=== PATIENT | female | born 1990 | race Caucasian/White ===

== ENCOUNTER → 2016-12-05 12:29 | Day surgery (SDC) | payer BC ==
[~2016-12-05 12:29] MED LIST: Buffered Lidocaine 1% SYRIN* 3 ML/SYR SYRINGE INTRADERM ONE; Lidocaine 1% INJ* 10 MG/ML 30 ML SDV ONE; Midazolam* 1 MG/ML 5 ML VIAL (5 MG) ONE; Ondansetron INJ* 2 MG/ML VIAL IV PRN; ceFAZolin 2 GM PREMIX(*) 0 GM/0 ML BAG IVPB ONE; ceFAZolin 2 GM PREMIX(*) 2 GM/50 ML BAG IVPB ONE; fentaNYL* 50 MCG/ML 2 ML VIAL (100 MCG VIAL) ONE; oxyCODONE/Acetamin 5/325 MG* TAB ONE; oxyCODONE/Acetamin 5/325 MG* TAB PO PRN
[2016-12-05 12:45] LABS: UR Preg Internal Control QC Line Present
--- NOTE | 2016-12-05 16:42 | SURGPN ---
Brief Operative Note - Surgery Procedures: PRE/POSTOP DX: CROHN'S DISEASE PROC: POWER PORT PLACEMENT, LEFT SUBCLAVIAN SURG: EDUARD ASST: NONE ANES: LOCAL/MAC; NICOLE EBL: MIN SPEC: NONE DRAIN: NONE COMPL: NONE COND: STABLE TO RR.
[2016-12-05 17:16] VITALS: BP 134/78
--- NOTE | 2016-12-05 17:24 | RAD ---
INDICATION: PowerPort placement COMPARISON: None FINDINGS: 8.1 seconds of fluoroscopy were provided for the surgical department. Fluoroscopic spot imaging of the chest were obtained for operative control and show placement of a PowerPort catheter from a left-sided approach. The catheter projects over the superior vena cava . CPT II Codes: 6045F (fluoro time doc)
--- NOTE | 2016-12-05 17:25 | RAD ---
INDICATION: Status post PowerPort placement COMPARISON: Preoperative chest x-ray dated July 04, 2016 TECHNIQUE: Single AP portable view of the chest was obtained. FINDINGS: Image quality is compromised due to the relative inferiority of a portable chest x-ray. There is been interval placement of a left subclavian vein Mediport with the tip terminating at the cavoatrial junction. There is no pneumothorax. IMPRESSION: Interval placement of a left-sided subclavian vein Mediport without pneumothorax.
--- NOTE | 2016-12-06 11:58 | OP ---
DATE OF OPERATION: 12/05/16 [facility] DATE OF : 89 SURGEON: Rafa Dominguez MD SOLE SCRAPER: None. ANESTHESIOLOGIST: Dr. Gandhi. ANESTHESIA: Local MAC. PRE-OP DIAGNOSIS: Crohn's disease. POST-OP DIAGNOSIS: Crohn's disease. OPERATIVE PROCEDURE: PowerPort placement, left subclavian. ESTIMATED BLOOD LOSS: Minimal. IV FLUIDS: Crystalloid. SPECIMEN: None. DRAINS: None. COMPLICATIONS: None. COUNTS: Instrument, needle, and sponge counts were correct. DESCRIPTION OF PROCEDURE: The patient was brought to the operating room and placed on the table supine. Sequential compression devices were placed on both lower extremities. She was positioned and padded appropriately. She received appropriate intravenous antibiotics. She was prepped and draped in the usual sterile fashion and administered intravenous sedation. After the time-out was performed, local anesthetic was infiltrated into the skin and soft tissue for a left-sided subclavian approach. The subclavian vein was cannulated on first pass and a guidewire was placed into the superior vena cava and its position confirmed under fluoroscopy. Additional anesthetic was then infiltrated into the skin and soft tissue in the area of the proposed subcutaneous pocket. Additional anesthetic was infiltrated along the line of the tunnel. The pocket was created in the upper chest using cautery to develop the subcutaneous space. A counterincision was then made at the guidewire insertion site. The 8- Cambodian PowerPort catheter was back tunneled into the pocket. The peel-away sheath and dilator were advanced over the guidewire under fluoroscopic guidance. The catheter was advanced into the superior vena cava and positioned with the tip at the cavoatrial junction. The catheter was cut to approximately 23 cm and connected to the PowerPort, which was placed into the pocket. It was drawn and flushed easily. It was secured with a single 2-0 Surgipro suture. The pocket was closed with 3-0 Polysorb in interrupted fashion for the subcutaneous tissues. Skin was closed with 4-0 Monocryl in subcuticular fashion. Steri-Strips were applied with Tegaderm dressing. The patient tolerated the procedure well and was transferred to Recovery stable. CC: Curtis James MD; Phong Monreal MD * [id number]/[facility] #: [id number] [facility]
== END | disposition home or self-care (01) ==
LOC: OR 12:29
PROVIDERS: ATTEND Surgery
DX: K50.00 Crohn's disease of small intestine without complications (principal); E66.9 Obesity, unspecified; Z87.891 Personal history of nicotine dependence; K21.9 Gastro-esophageal reflux disease without esophagitis; R10.31 Right lower quadrant pain
CPT/HCPCS: 71010; 81025; A9270-GY; C1788; J0690; J1642; J2001; J2250; J3010

== ENCOUNTER 2017-04-04 19:07 | Emergency (ER) | payer BC ==
[2017-04-04 21:18] LABS: Hematocrit 44 % (35-47); Hemoglobin 14.8 g/dl (12.0-16.0); Mean Corpuscular HGB Conc 33 g/dl (31-36); Mean Corpuscular Hemoglobin 28 pg (27-31); Mean Corpuscular Volume 83 fL (80-97); Mean Platelet Volume 8 um3 (7.4-10.4); Red Blood Count 5.33 10^6/ul (4.0-5.4); Red Cell Distribution Width 14 % (10.5-15); White Blood Count 8.3 10^3/ul (3.5-10.8)
[2017-04-04 21:28] LABS: Potassium 3.6 mmol/L (3.5-5.0)
[2017-04-04 21:56] LABS: Albumin 4.2 g/dL (3.2-5.2); BUN/Creatinine Ratio 14.3 (8-20); Calcium 9.2 mg/dL (8.6-10.3); EGFR African American 131.1 (>60); Globulin 3.2 g/dL (2-4); Magnesium 2.1 mg/dL (1.9-2.7); Total Protein 7.4 g/dL (6.4-8.9)
[2017-04-04 21:57] LABS: TSH (Thyroid Stimulating Horm) 1.98 mcIU/mL (0.34-5.60)
--- NOTE | 2017-04-04 22:01 | ED ---
Rasheed Laureano SooYoung, scribed for Augie Matthews MD on 04/04/17 at 1925 . Palpitations / Dysrhythmia - HPI Summary HPI Summary: A 26 y/o F presents to ED with c/o palpitations onset last night. She states she can feel her heart beating hard, denies CP, describes it as chest discomfort. Associated sx: fatigue, mild chest discomfort, jitteriness since resolved. She came in because her sx weren't improving. She states have prev episodes of palpitations but they resolved sooner before. She used her albuterol inhaler which did provide mild relief. Denies aggravating factors. - History of Current Complaint Chief Complaint: EDDysrhythmPalp Time Seen by Provider: 04/04/17 19:22 Hx Obtained From: Patient Onset/Duration: Gradual Onset, Lasting Hours, Still Present Timing: Constant Severity Initially: Moderate Severity Currently: Moderate Aggravating: Nothing Alleviating: Medication - inhaler use Associated Signs & Symptoms: Chest Pain - "discomfort" - Allergy/Home Medications Allergies/Adverse Reactions: Allergies Allergy/AdvReac Type Severity Reaction Status Date / Time Adhesive Tape Allergy skin Verified 03/19/17 11:29 irritation, RASH No Known Drug Allergy Allergy Unknown Verified 03/19/17 11:29 Reaction Details SEASONAL, CATS, DOGS, MOLD Allergy Mild Congestion Uncoded 03/19/17 11:29 PMH/Surg Hx/FS Hx/Imm Hx Previously Healthy: No Endocrine/Hematology History: Reports: Hx Anemia - RELATED TO B12 Denies: Hx Diabetes, Hx Thyroid Disease Cardiovascular History: Denies: Hx Congestive Heart Failure, Hx Hypertension Respiratory History: Reports: Hx Asthma - PRN INHALER Denies: Hx Chronic Obstructive Pulmonary Disease (COPD) GI History: Reports: Hx Crohn's Disease, Hx Gastroesophageal Reflux Disease - ON MEDICATION FOR, Other GI Disorders - CROHNS Denies: Hx Ulcer History: Denies: Hx Dialysis, Hx Renal Disease Musculoskeletal History: Reports: Hx Arthritis - BACK, Other Musculoskeletal History - SPINAL STENOSIS, 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 COLONOSCOPY. WISDOM TEETH WITH SEDATION Hx Anesthesia Reactions: No Infectious Disease History: No Infectious Disease History: Denies: Hx Hepatitis, Hx Human Immunodeficiency Virus (HIV), History Other Infectious Disease, Traveled Outside the [place] in Last 30 Days - Family History Known Family History: Positive: Other - Negative for blood clots - Social History Occupation: Employed Full-time Lives: With Family Alcohol Use: Occasionally Hx Substance Use: No Substance Use Type: Reports: None Hx Tobacco Use: Yes Smoking Status (MU): Former Smoker Type: Cigarettes Amount Used/How Often: 1 PPD X 4 YEARS Length of Time of Smoking/Using Tobacco: appx 5yrs Have You Smoked in the Last Year: No Review of Systems Positive: Fatigue, Other - pos: jitteriness, resolved. Negative: Fever Positive: Palpitations, Chest Pain - "discomfort" All Other Systems Reviewed And Are Negative: Yes Physical Exam Triage Information Reviewed: Yes Vital Signs On Initial Exam: Initial Vitals Temp Pulse Resp BP Pulse Ox 98.5 F 94 18 130/86 96 04/04/17 19:12 04/04/17 19:12 04/04/17 19:12 04/04/17 19:12 04/04/17 19:12 Vital Signs Reviewed: Yes Appearance: Positive: Well-Appearing, No Pain Distress Skin: Positive: Warm Head/Face: Positive: Normal Head/Face Inspection Eyes: Positive: JOZEF ENT: Positive: Hearing grossly normal Neck: Positive: Supple Respiratory/Lung Sounds: Positive: Clear to Auscultation, Breath Sounds Present Cardiovascular: Positive: RRR. Negative: Murmur Abdomen Description: Positive: Nontender, Soft Bowel Sounds: Positive: Present Musculoskeletal: Positive: Strength/ROM Intact Neurological: Positive: Alert, Oriented to Person Place, Time Psychiatric: Positive: Affect/Mood Appropriate Diagnostics - Vital Signs Vital Signs Temp Pulse Resp BP Pulse Ox 04/04/17 19:17 98.5 F 94 18 130/86 96 04/04/17 19:12 98.5 F 94 18 130/86 96 - Laboratory Lab Results: Lab Results 04/04/17 04/04/17 04/04/17 Range/Units 21:00 21:00 21:00 WBC 8.3 (3.5-10.8) 10^3/ul RBC 5.33 (4.0-5.4) 10^6/ul Hgb 14.8 (12.0-16.0) g/dl Hct 44 (35-47) % MCV 83 (80-97) fL MCH 28 (27-31) pg MCHC 33 (31-36) g/dl RDW 14 (10.5-15) % Plt Count 264 (150-450) 10^3/ul MPV 8 (7.4-10.4) um3 Neut % (Auto) 50.8 (38-83) % Lymph % (Auto) 37.8 (25-47) % Ness % (Auto) 7.1 (1-9) % Eos % (Auto) 2.6 (0-6) % Baso % (Auto) 1.7 (0-2) % Absolute Neuts (auto) 4.2 (1.5-7.7) 10^3/ul Absolute Lymphs (auto) 3.1 (1.0-4.8) 10^3/ul Absolute Monos (auto) 0.6 (0-0.8) 10^3/ul Absolute Eos (auto) 0.2 (0-0.6) 10^3/ul Absolute Basos (auto) 0.1 (0-0.2) 10^3/ul Absolute Nucleated RBC 0 10^3/ul Nucleated RBC % 0 Sodium 137 (133-145) mmol/L Potassium 3.6 (3.5-5.0) mmol/L Chloride 105 (101-111) mmol/L Carbon Dioxide 24 (22-32) mmol/L Anion Gap 8 (2-11) mmol/L BUN 10 (6-24) mg/dL Creatinine 0.70 (0.51-0.95) mg/dL Est GFR ( Amer) 131.1 (>60) Est GFR (Non-Af Amer) 102.0 (>60) BUN/Creatinine Ratio 14.3 (8-20) Glucose 83 (70-100) mg/dL Lactic Acid 0.7 (0.5-2.0) mmol/L Calcium 9.2 (8.6-10.3) mg/dL Magnesium 2.1 (1.9-2.7) mg/dL Total Bilirubin 1.00 (0.2-1.0) mg/dL AST 21 (13-39) U/L ALT 32 (7-52) U/L Alkaline Phosphatase 67 (34-104) U/L Troponin I 0.00 (<0.04) ng/mL Total Protein 7.4 (6.4-8.9) g/dL Albumin 4.2 (3.2-5.2) g/dL Globulin 3.2 (2-4) g/dL Albumin/Globulin Ratio 1.3 (1-3) TSH 1.98 (0.34-5.60) mcIU/mL Result Diagrams: 04/04/17 21:00 04/04/17 21:00 Lab Statement: Any lab studies that have been ordered have been reviewed, and results considered in the medical decision making process. - EKG 1923 Cardiac Rate: NL EKG Rhythm: Sinus Rhythm ST Segment: Normal Re-Evaluation - Re-Evaluation 1 Re-Evaluation Time: 22:02 Change: Improved Comment: Discussing results and dispo with pt. Pt voiced understanding. Course/Dx - Course Course Of Treatment: Pt is a 26 y/o F presenting with palpitations onset last night. She states she can feel her heart beating hard, denies CP, describes it as discomfort. Associated sx: fatigue, mild chest discomfort, jitteriness since resolved. She came in because her sx weren't improving. She states have prev episodes of palpitations but they resolved sooner before. She used her albuterol inhaler which did provide mild relief. Denies aggravating factors. Blood work results are without any significant abnormalities. EKG is NSR with no STEMI. Will dispo home to f/u with PCP. - Diagnoses Provider Diagnoses: Palpitations Discharge - Discharge Plan Condition: Stable Disposition: HOME Patient Education Materials: Chest Pain (ED) Referrals: Phong Moneral MD [Primary Care Provider] - 2 Days Additional Instructions: Follow up with your primary care provider within the next 2 days. Please return to the Emergency Room if you experience new or worsening symptoms. The documentation as recorded by the Rasheed jacome SooYoung accurately reflects the service I personally performed and the decisions made by me, Augie Matthews MD.
[2017-04-04 22:19] VITALS: BP 123/78
== END 2017-04-04 22:10 | disposition home or self-care (01) ==
LOC: ED 19:07
DX: R00.2 Palpitations (principal); R07.9 Chest pain, unspecified; Z87.891 Personal history of nicotine dependence; R53.83 Other fatigue
CPT/HCPCS: 36415; 80053; 83605; 83735; 84443; 84484; 85025; 93005; 99282

== ENCOUNTER 2017-05-12 21:58 | Emergency (ER) | payer BC ==
[2017-05-12] MEDS ORDERED: Ondansetron INJ* 2 MG/ML VIAL IV ONE (22:21)
[2017-05-12] MEDS ORDERED: Morphine INJ* 4 MG/ML 1 ML CARPUJECT IV ONE ×2 (22:21→23:49)
[2017-05-12] MEDS ORDERED: predniSONE TAB* 20 MG PO ONE (23:49)
[2017-05-12] MEDS ORDERED: oxyCODONE/Acetamin 5/325 MG* TAB PO ONE (23:50)
--- NOTE | 2017-05-12 23:58 | ED ---
Sarai Laureano Emily, scribed for Scott Rouse MD on 05/12/17 at 2216 . Back Pain - HPI Summary HPI Summary: This patient is a 26 year old F presenting to [facility] accompanied by with a chief complaint of left, lower back pain radiating to left lower buttocks and bilateral lower extremities that began yesterday morning. The CC is described as shooting pain. The patient rates the pain 7/10 in severity. Symptoms aggravated by movement. Symptoms alleviated by nothing. Patient reports numb and tingly legs. Patient denies urinary incontinence and bowel symptoms. PMHx of back pain with stenosis and degenerative disc disease. - History of Current Complaint Chief Complaint: EDBackInjuryPain Stated Complaint: LOWER BACK PAIN Time Seen by Provider: 05/12/17 22:07 Hx Obtained From: Patient Hx Last Menstrual Period: ON DEPOPROVERA Onset/Duration: Sudden Onset, Lasting Days, Still Present Onset/Duration: Started Days Ago Timing: Constant, Lasting Days Back Pain Location: Radiates To - Left lower buttocks and bilateral lower extremities Severity Initially: Moderate Severity Currently: Moderate Pain Intensity: 7 Pain Scale Used: 0-10 Numeric Aggravating Symptom(s): Movement Alleviating Symptom(s): Nothing Associated Signs And Symptoms: Positive: Other - Patient reports numb and tingly legs. Patient denies urinary incontinence and bowel symptoms - Allergies/Home Medications Allergies/Adverse Reactions: Allergies Allergy/AdvReac Type Severity Reaction Status Date / Time Adhesive Tape Allergy skin Verified 05/12/17 22:03 irritation, RASH No Known Drug Allergy Allergy Unknown Verified 05/12/17 22:03 Reaction Details SEASONAL, CATS, DOGS, MOLD Allergy Mild Congestion Uncoded 05/12/17 22:03 PMH/Surg Hx/FS Hx/Imm Hx Previously Healthy: No Endocrine/Hematology History: Reports: Hx Anemia - RELATED TO B12 Denies: Hx Diabetes, Hx Thyroid Disease Cardiovascular History: Denies: Hx Congestive Heart Failure, Hx Hypertension Respiratory History: Reports: Hx Asthma - PRN INHALER Denies: Hx Chronic Obstructive Pulmonary Disease (COPD) GI History: Reports: Hx Crohn's Disease, Hx Gastroesophageal Reflux Disease - ON MEDICATION FOR, Other GI Disorders - CROHNS Denies: Hx Ulcer History: Denies: Hx Dialysis, Hx Renal Disease Musculoskeletal History: Reports: Hx Arthritis - BACK, Other Musculoskeletal History - SPINAL STENOSIS, 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 COLONOSCOPY. WISDOM TEETH WITH SEDATION Hx Anesthesia Reactions: No Infectious Disease History: Denies: Hx Hepatitis, Hx Human Immunodeficiency Virus (HIV), History Other Infectious Disease, Traveled Outside the [place] in Last 30 Days - Family History Known Family History: Positive: Other - Negative for blood clots - Social History Occupation: Employed Full-time Lives: With Family Alcohol Use: Occasionally Hx Substance Use: No Substance Use Type: Reports: None Hx Tobacco Use: Yes Smoking Status (MU): Former Smoker Type: Cigarettes Amount Used/How Often: 1 PPD X 4 YEARS Length of Time of Smoking/Using Tobacco: appx 5yrs Have You Smoked in the Last Year: No Review of Systems Genitourinary: Other - Negative bowel symptoms Negative: incontinence Positive: Other - Back pain. Numb and "tingly" legs All Other Systems Reviewed And Are Negative: Yes Physical Exam Triage Information Reviewed: Yes Vital Signs On Initial Exam: Initial Vitals Temp Pulse Resp BP Pulse Ox 97.5 F 90 16 131/84 98 05/12/17 22:00 05/12/17 22:00 05/12/17 22:00 05/12/17 22:00 05/12/17 22:00 Vital Signs Reviewed: Yes Appearance: Positive: Well-Appearing, Pain Distress - Mild Skin: Positive: Warm, Skin Color Reflects Adequate Perfusion, Dry Head/Face: Positive: Normal Head/Face Inspection Eyes: Positive: EOMI, JOZEF ENT: Positive: Normal ENT inspection Neck: Positive: Supple, Nontender Respiratory/Lung Sounds: Positive: Clear to Auscultation, Breath Sounds Present Cardiovascular: Positive: RRR Abdomen Description: Positive: Nontender, Soft Bowel Sounds: Positive: Present Musculoskeletal: Positive: Strength/ROM Intact, Other - Tender lower lumbar and through both buttocks on sciatic nerve distributions. Full range of motion and good strength in both legs. Good plantar flexion. Good dorsal flexion including greater toe. Good hip flexion. Good knee flexion. Hesitance secondary to pain. Neurological: Positive: Normal, Sensory/Motor Intact, Alert, Oriented to Person Place, Time Psychiatric: Positive: Affect/Mood Appropriate Diagnostics - Vital Signs Vital Signs Temp Pulse Resp BP Pulse Ox 05/12/17 22:00 97.5 F 90 16 131/84 98 - Laboratory Lab Statement: Any lab studies that have been ordered have been reviewed, and results considered in the medical decision making process. - CT Lumbar Spine CT Interpretation Completed By: Radiologist - Reveals bulging of the L3-4 and L4 -5 discs without significant mass effect. Moderate size L5/S1 disc herniation which mildly narrow the central canal and mildly abus the descending right and left S1 nerve roots. ED physician has reviewed this radiology report and agrees. Back Pain Course/Dx - Course Course Of Treatment: PATIENT HAS INTERMITTENT NUMBNESS AND TINGLING IN THE LEFT LEG THAT CHANGES WITH POSITION. NO MOTOR DEFICIT FOUND ON EXAM. DISCUSSED WITH PATIENT THE NEED FOR CLOSE FOLLOW UP WITH PROBABLE LS SPINE MRI AND THE NEED TO GET SEEN RIGHT AWAY FOR ANY NEUROLOGIC DEFICIT. DISCUSSED CT RESULTS WITH PATIENT/. NO CRITICAL CARE TIME. - Diagnoses Provider Diagnoses: Low back pain, Left lumbar radiculopathy Discharge - Discharge Plan Condition: Stable Disposition: HOME Prescriptions: oxyCODONE/Acetamin 5/325 MG* [Percocet 5/325 TAB*] 1 tab PO Q4H PRN #20 tab MDD 6 PRN Reason: Pain predniSONE TAB* [Deltasone TAB*] 40 mg PO DAILY #8 tab Patient Education Materials: Acute Low Back Pain (ED), Lumbar Radiculopathy (ED ) Forms: *Work Release Referrals: Phong Monreal MD [Primary Care Provider] - Additional Instructions: FOLLOW UP WITH YOUR DOCTOR. CALL 05/14/17, FOR FOLLOW UP. RETURN TO THE EMERGENCY DEPARTMENT FOR ANY WORSENING OF YOUR CONDITION; WEAKNESS , NUMBNESS, DIFFICULTY CONTROLLING BOWEL OR BLADDER OR QUESTIONS OR CONCERNS. The documentation as recorded by the Sarai jacome Emily accurately reflects the service I personally performed and the decisions made by me, Scott Rouse MD.
[2017-05-13 00:04] VITALS: BP 123/67
--- NOTE | 2017-05-13 14:35 | RAD ---
Indication: Low back pain extending to the bilateral legs. Comparison: July 04, 2016 CT. Technique: Noncontrast CT lumbar sacral spine. Multiplanar reformation. Report: Negative for paravertebral hematoma or mass. Negative for fracture or spondylolysis at any level. Normal vertebral alignment without spondylolisthesis at any level. T12-L1: Unremarkable disc level for age without acquired spinal stenosis. L1-L2: Unremarkable disc level for age without acquired spinal stenosis. L2-L3: Unremarkable disc level for age without acquired spinal stenosis. L3-L4: Unremarkable disc level for age without acquired spinal stenosis. L4-L5: Suggestion of mild annular disc bulge. Negative for spinal stenosis. L5-S1: Posterior central small disc extrusion with mild caudal extension and resulting impression on the central anterior aspect of the thecal sac. No significant resulting central canal or foraminal stenosis. IMPRESSION: At L5-S1 there is a small central disc extrusion with only mild resulting impression on the anterior aspect of the thecal sac. Negative for significant interval change compared with the July 04, 2016 exam.
== END 2017-05-13 00:42 | disposition home or self-care (01) ==
LOC: ED 21:58
DX: M54.5 Low back pain (principal); M54.16 Radiculopathy, lumbar region
CPT/HCPCS: 72131; 96374; 96375; 99283; A9270-GY; J2270; J2405; J7512

== ENCOUNTER 2018-03-30 14:59 | Emergency (ER) | payer BC ==
--- NOTE | 2018-03-30 16:10 | ED ---
Back Pain - HPI Summary HPI Summary: This is ayaz Braden documenting for attending Carl Mart MD. Patient is a 27 y/o F w/ c/o acute back pain. Patient notes back pain onset yesterday evening. Today in the morning, it had temporarily resolved but suddenly onset again at around 1000. Pain is rated 8/10 in the room and it is noted to be located at the center of back. Pain radiates outward to sides. Patient has Hx of chronic back pain but notes present pain is different from the typical pain she experiences. She states she takes epidural shots every two months for back pain. It has been about a month since her last shot. Pain is characterized as tightness. No recent trauma is noted. She denies weakness and claims FROM. On triage, nothing is noted to aggravate or alleviate Sx. Home medications and allergies reviewed. - History of Current Complaint Chief Complaint: EDBackInjuryPain Stated Complaint: BACK PAIN Time Seen by Provider: 03/30/18 15:47 Hx Obtained From: Patient Hx Last Menstrual Period: ON DEPOPROVERA Onset/Duration: Sudden Onset, Lasting Days - pain onset was yesterday, resolved temporarily and returned this morning Onset/Duration: Started Days Ago - pain onset was yesterday, resolved temporarily and returned this morning Timing: Intermittent - pain onset was yesterday, resolved temporarily and returned this morning Back Pain Location: Is Discrete @ - center of back, Radiates To - outwards to sides Severity Currently: Severe Pain Intensity: 8 Pain Scale Used: 0-10 Numeric - 8/10 Aggravating Symptom(s): Nothing Alleviating Symptom(s): Nothing - Allergies/Home Medications Allergies/Adverse Reactions: Allergies Allergy/AdvReac Type Severity Reaction Status Date / Time Adhesive Tape Allergy skin Verified 03/30/18 15:05 irritation, RASH SEASONAL, CATS, DOGS, MOLD Allergy Mild Congestion Uncoded 03/30/18 15:05 PMH/Surg Hx/FS Hx/Imm Hx Endocrine/Hematology History: Reports: Hx Anemia - RELATED TO B12 Denies: Hx Diabetes, Hx Thyroid Disease Cardiovascular History: Denies: Hx Congestive Heart Failure, Hx Hypertension Respiratory History: Reports: Hx Asthma - PRN INHALER Denies: Hx Chronic Obstructive Pulmonary Disease (COPD) GI History: Reports: Hx Crohn's Disease, Hx Gastroesophageal Reflux Disease - ON MEDICATION FOR, Other GI Disorders - CROHNS Denies: Hx Ulcer History: Denies: Hx Dialysis, Hx Renal Disease Musculoskeletal History: Reports: Hx Arthritis - BACK, Other Musculoskeletal History - SPINAL STENOSIS, 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 COLONOSCOPY, POWERPORT INSERTION 12/11. WISDOM TEETH WITH SEDATION Hx Anesthesia Reactions: No Infectious Disease History: No Infectious Disease History: Denies: Hx Hepatitis, Hx Human Immunodeficiency Virus (HIV), History Other Infectious Disease, Traveled Outside the [place] in Last 30 Days - Family History Known Family History: Positive: Other - Negative for blood clots - Social History Alcohol Use: Occasionally Alcohol Amount: 1-2 DRINKS Hx Substance Use: No Substance Use Type: Reports: None Hx Tobacco Use: Yes Smoking Status (MU): Former Smoker Type: Cigarettes Amount Used/How Often: 1 PPD X 4 YEARS Length of Time of Smoking/Using Tobacco: appx 5yrs Have You Smoked in the Last Year: No Review of Systems Negative: Fever - on vitals, temperature is 97.9 F Positive: Other - back pain located at the center of the back; pain radiates outwards to sides All Other Systems Reviewed And Are Negative: Yes Physical Exam - Summary Physical Exam Summary: Appearance: The patient is well-nourished in no acute distress and in no acute pain. Skin: The skin is warm and dry and skin color reflects adequate perfusion. HEENT: The head is normocephalic and atraumatic. The pupils are equal and reactive. The conjunctivae are clear and without drainage. Nares are patent and without drainage. Mouth reveals moist mucous membranes and the throat is without erythema and exudate. The external ears are intact. The ear canals are patent and without drainage. The tympanic membranes are intact. Neck: The neck is supple with full range of motion and non-tender. There are no carotid bruits. There is no neck vein distension. Respiratory: Chest is non-tender. Lungs are clear to auscultation and breath sounds are symmetrical and equal. Cardiovascular: Heart is regular rate and rhythm. There is no murmur or rub auscultated. There is no peripheral edema and pulses are symmetrical and equal. Abdomen: The abdomen is soft and non-tender. There are normal bowel sounds heard in all four quadrants and there is no organomegaly palpated. Musculoskeletal: There is no back tenderness noted. Extremities are non-tender with full range of motion. There is good capillary refill. There is no peripheral edema or calf tenderness elicited. Neurological: Patient is alert and oriented to person, place and time. The patient has symmetrical motor strength in all four extremities. Cranial nerves are grossly intact. Deep tendon reflexes are symmetrical and equal in all four extremities. Psychiatric: The patient has an appropriate affect and does not exhibit any anxiety or depression. Triage Information Reviewed: Yes Vital Signs On Initial Exam: Initial Vitals Temp Pulse Resp BP Pulse Ox 97.9 F 80 16 109/76 97 03/30/18 15:02 03/30/18 15:02 03/30/18 15:02 03/30/18 15:02 03/30/18 15:02 Vital Signs Reviewed: Yes Diagnostics - Vital Signs Vital Signs Temp Pulse Resp BP Pulse Ox 03/30/18 15:02 97.9 F 80 16 109/76 97 - Laboratory Lab Statement: Any lab studies that have been ordered have been reviewed, and results considered in the medical decision making process. Re-Evaluation - Re-Evaluation First Eval Re-Evaluation Time: 17:05 Comment: Discussed patient's desires for treatment. Patient will be discharged to home and follow up with pain management doctor, Dr. Lozoya. Patient is agreeable with plan. Back Pain Course/Dx - Course Course Of Treatment: Ms. Klein has long history of low back pain. She is treated every 2 months with injections through the pain clinic. Her last injection was January 30. Normally her back pain begins to come back gradually after 2 months and she became concerned because it is not quite been 2 months and her pain returned quickly. She was neurologically intact. I don't have a lot to offer her except pain control as she does not qualify for MRI at this time. There is no trauma and CT has little to offer and his invasive for 27- year-old female. I gave her a short prescription for Langley and recommended follow-up at the pain clinic. - Diagnoses Provider Diagnoses: Low back strain Discharge - Sign-Out/Discharge Documenting (check all that apply): Patient Departure - discharge - Discharge Plan Condition: Stable Disposition: HOME Prescriptions: HYDROcodone/ACETAMIN 5-325 MG* [Langley 5-325 TAB*] 1 tab PO Q6H PRN #20 tab MDD 4 PRN Reason: Pain Patient Education Materials: Low Back Strain (ED) Forms: *Work Release Referrals: Felipe Lozoya MD [Medical Doctor] - 3 Days Additional Instructions: Follow up with Dr. Lozoya in 2-3 days. Return to ED for any new or worsening symptoms. - Billing Disposition and Condition Condition: STABLE Disposition: Home
[2018-03-30] MEDS ORDERED: oxyCODONE/Acetamin 5/325 MG* TAB PO ONE (16:23)
[2018-03-30 17:44] VITALS: BP 107/84
== END 2018-03-30 17:16 | disposition home or self-care (01) ==
LOC: ED 14:59
DX: S39.012A Strain of muscle, fascia and tendon of lower back, initial encounter (principal); X58.XXXA Exposure to other specified factors, initial encounter; Y93.9 Activity, unspecified; Y92.9 Unspecified place or not applicable; J45.909 Unspecified asthma, uncomplicated; K21.9 Gastro-esophageal reflux disease without esophagitis; Z87.891 Personal history of nicotine dependence
CPT/HCPCS: 99282

== ENCOUNTER 2018-06-17 19:54 | Emergency (ER) | payer BC ==
[2018-06-17 20:05] VITALS: BP 126/85
--- NOTE | 2018-06-17 20:17 | UC ---
Eye Complaint HPI - HPI Summary HPI Summary: 27 yo female presents with left eye redness and drainage for 1 week. She says that around this time she tends to get allergies, so she thought her eye was related to seasonal allergies. Has been using antihistamine eye drops with no relief. Denies eye injury or FB into eyes. She does not wear contacts or glasses. Denies fever or chills or recent illness. - History of Current Complaint Chief Complaint: UCEye Stated Complaint: EYE IRRITATION, AND SORE THROAT Time Seen by Provider: 06/17/18 20:01 Hx Obtained From: Patient Hx Last Menstrual Period: [id number] Onset/Duration: Sudden Onset Severity Initially: Mild Severity Currently: Mild Pain Intensity: 3 Pain Scale Used: 0-10 Numeric - Allergies/Home Medications Allergies/Adverse Reactions: Allergies Allergy/AdvReac Type Severity Reaction Status Date / Time Adhesive Tape Allergy skin Verified 06/17/18 20:05 irritation, RASH SEASONAL, CATS, DOGS, MOLD Allergy Mild Congestion Uncoded 06/17/18 20:05 PMH/Surg Hx/FS Hx/Imm Hx - Additional Past Medical History Additional PMH: RA Respiratory History: Asthma GI/ History: Gastroesophageal Reflux - Surgical History Surgical History: Yes Surgery Procedure, Year, and Place: ILIECTOMY, ILIEOSTOMY 2008,ILEOSTOMY REVERSAL 2009, HERNIA REPAIR 2009. COLONOSCOPY, POWERPORT INSERTION 12/11. WISDOM TEETH WITH SEDATION - Family History Known Family History: Positive: Other - Negative for blood clots - Social History Occupation: Employed Full-time Lives: With Family Alcohol Use: Occasionally Alcohol Amount: 1-2 drinks per week Substance Use Type: None Smoking Status (MU): Former Smoker Type: Cigarettes Amount Used/How Often: 1 PPD X 4 YEARS Length of Time of Smoking/Using Tobacco: appx 5yrs Have You Smoked in the Last Year: No When Did the Patient Quit Smoking/Using Tobacco: 2 YEARS AGO Household Exposure Type: Cigarettes - Immunization History Most Recent Tetanus Shot: fall 2011 Review of Systems Constitutional: Negative Skin: Negative Eyes: Drainage - left, Eye Redness - left ENT: Negative Respiratory: Negative Cardiovascular: Negative Neurovascular: Negative Neurological: Negative Psychological: Negative All Other Systems Reviewed And Are Negative: Yes Physical Exam - Summary Physical Exam Summary: GENERAL: WDWN. No pain distress. SKIN: No rashes, sores, lesions, or open wounds. HEENT: Head: AT/NC Eyes: EOM intact. PERRLA. LEFT EYE: Moderate scleral injection. Conjunctiva with Moderate erythema and inflammation. Mild clear/yellow discharge. RIGHT EYE: Conjunctiva clear without inflammation or discharge. No FBs appreciated Nose: NTTP maxillary and frontal sinus. NECK: Supple. Nontender. No lymphadenopathy. CHEST: No accessory muscle use. Breathing comfortably and in no distress. CV: Pulses intact. Cap refill <2seconds NEURO: Alert. PSYCH: Age appropriate behavior. Triage Information Reviewed: Yes Vital Signs: Initial Vital Signs Temp 98.7 F 06/17/18 19:59 Pulse 87 06/17/18 19:59 Resp 16 06/17/18 19:59 BP 126/85 06/17/18 19:59 Pulse Ox 97 06/17/18 19:59 Vital Signs Reviewed: Yes Eye Complaint Course/Dx - Course Course Of Treatment: Left eye conjunctivitis - Differential Dx/Diagnosis Provider Diagnoses: Left eye conjunctivitis Discharge - Sign-Out/Discharge Documenting (check all that apply): Patient Departure All imaging exams completed and their final reports reviewed: No Studies - Discharge Plan Condition: Stable Disposition: HOME Prescriptions: Ofloxacin 0.3% (Eye Drop) [Ocuflox OPTH 0.3% (Eye Drop)] 1 drop LEFT EYE Q4H #1 btl Patient Education Materials: Conjunctivitis (ED) Forms: *Work Release Referrals: Phong Monreal MD [Primary Care Provider] - Additional Instructions: If you develop a fever, shortness of breath, chest pain, new or worsening symptoms - please call your PCP or go to the ED. - Billing Disposition and Condition Condition: STABLE Disposition: Home
== END 2018-06-17 20:25 | disposition home or self-care (01) ==
LOC: UCEAST 19:54
DX: H10.9 Unspecified conjunctivitis (principal); J45.909 Unspecified asthma, uncomplicated; Z87.891 Personal history of nicotine dependence; Z91.048 Other nonmedicinal substance allergy status
CPT/HCPCS: 99212; G0463

== ENCOUNTER 2018-08-28 14:55 | Emergency (ER) | payer BC ==
--- OUTSIDE RECORDS SUMMARY | 2018-08-28 15:00 | XMS REPORT | Continuity of Care Document ---
:1990 External Reference #:[id number] Author Name Curtis James MD Address [facility] [place] [address] Care Team Providers Name Role Phone Phong Moneral MD Care Team Information Cook Night Unavailable Phong Monreal MD Primary Care Physician Unavailable Payers Type Date Identification Numbers Payment Provider Subscriber Policy Number: [id number] BS Of LIOR Ivis Corey PayID: [id number] [address] [address] [place] [address] Advance Directives Description No Information Available Problems Date Description Provider Status Onset: 01/25/2016 Gastroesophageal reflux disease Curtis James MD Active Onset: 01/25/2016 Epigastric pain Curtis James MD Active Onset: 07/14/2015 Crohn's disease of small AND large Curtis James MD Active intestines Onset: 07/14/2015 Eruption Curtis James MD Active Onset: 07/03/2014 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 Onset: 07/03/2014 Melena MATT Chin Active Onset: 08/14/2012 Crohn's disease Curtis James MD Active Family History Date Family Member(s) Problem(s) Comments Father No Current Problems Mother No Current Problems Social History Type Date Description Comments Sex Unknown Tobacco Use Start: Unknown End: Unknown Patient is a former smoker Smoking Status Reviewed: 07/24/18 Patient is a former smoker Allergies, Adverse Reactions, Alerts Description No Known Drug Allergies Medications Medication Date Status Form Strength Qnty SIG Indications Ordering Provider Hyoscyamine 06/27/ Active Tablets Sub 0.125mg 30tab take 1 to K50.818 Curtis Bear Sulfate SL 2018 s 3 tablets [place], by mouth daily as needed for diarrhea, pain Emla 02/06/ Active Cream 2.5-2.5% 50gm apply Curtsi Bear 2016 small dab Erika, to [facility] before infusion Protonix 01/24/ Active Tablets DR 40mg 120ta 1 by Curtis Bear 2015 bs mouth Erika, twice a MD day Remicade / Active Solution 100mg infusion Unknown 0000 Rec every 7 weeks Vitamin B12 / Active Liquid 1000mcg 1000 mcg Unknown 0000 Im Every Month Trazodone HCL / Active Tablets 50mg hs Unknown 0000 Flexeril / Active Tablets 10mg 1 by Unknown 0000 mouth at hs prn Montelukast / Active Tablets 10mg 1 by Unknown Sodium 0000 mouth every day Colyte With 06/27/ Hx Solution 240gm 4000m by mouth K50.818 Curtis Baer Flavor Packs 2016 - Rec l as Erika, 06/30/ directed 2016 Pantoprazole 02/03/ Hx Tablets DR 40mg 120ta Take One Curtis Bear Sodium 2016 - bs Tablet By Erika, 06/27/ Mouth 2016 Twice Daily Prednisone 06/23/ Hx Tablets 10mg QS 3 po q Curtis Bear 2015 - day x 5 Erika, 11/16/ days, 2016 then 2 po qday x 5 days, then 1 po q day x 5 days, then 1 po qother day x 6 days, then stop Carafate 01/24/ Hx Tablets 1gm 120ta 1 by Curtis Bear 2015 - bs mouth Erika, 11/16/ three 2016 times a day, and q hs Budesonide ER 09/02/ Hx Caps ER 3mg QS 3 by Curtis Bear 2015 - 24HR mouth Erika, 01/24/ everyday 2015 x 2wks, then 2 by mouth every day x 1weeks, then 1 by mouth every day x 1weeks, then stop Doxycycline 07/14/ Hx Capsules 100mg 28cap 1 by Curtis Bear Hyclate 2014 - mouth Erika, 01/24/ twice a MD 2015 day x 14 days Pantoprazole 07/14/ Hx Tablets DR 40mg 90tab 1 by Curtis Bear Sodium 2014 - mouth Erika, 11/16/ every day 2016 Miralax 07/03/ Hx Powder [id number] 1unit As 455.3 Alyssa MunozRadha 2013 directed Amisano, 07/06/ 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 Prednisone 06/19/ Hx Tablets 5mg 45tab 20mg x 5 Alyssa Georgia 2013 days, Amisano, 07/14/ 15mg x 5 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 days, 10mg x 3 days, 5mg x 3 days Vitamin B-Complex 03/18/ Hx Injection 100 2 per Curtis DRadha 100 2013 - Erika, 2015 Prilosec 00/ Hx Capsules DR 20mg 30cap 1 po qd Unknown - s 2014 Depo-Testosterone / Hx Oil 100mg/ml Unknown - 2015 Allergy Shots / Hx once Unknown 0000 - weekly 2013 Tramadol HCL / Hx Tablets 50mg Unknown - 2016 Cyclobenzaprine 00/ Hx Tablets 10mg Unknown HCL - 2015 Protonix 00/ Hx Tablets DR 20mg Daily Unknown - 2015 Depo-Provera / Hx Suspension 400mg/ml Every 3 Unknown - 2016 Lo Loestrin Fe 00/ Hx Tablets 1mg-10 Unknown Control Pill 2018 Immunizations Description No Information Available Vital Signs Date Vital Result Comment 07/24/2018 1:35pm Height 60 inches 5'0" Weight 206.00 lb BP Systolic 119 mmHg BP Diastolic 87 mmHg Heart Rate 93 /min BMI (Body Mass Index) 40.2 kg/m2 06/27/2018 1:50pm Height 60 inches 5'0" Weight 200.00 lb BP Systolic 125 mmHg BP Diastolic 86 mmHg Heart Rate 79 /min BMI (Body Mass Index) 39.1 kg/m2 06/27/2017 2:50pm Height 60 inches 5'0" Weight 206.00 lb BMI (Body Mass Index) 40.2 kg/m2 05/29/2017 2:26pm Height 60 inches 5'0" Weight 200.00 lb BMI (Body Mass Index) 39.1 kg/m2 11/16/2016 2:12pm Height 60.5 inches 5'0.50" Weight 212.00 lb BMI (Body Mass Index) 40.7 kg/m2 07/05/2016 11:50am Height 60.5 inches 5'0.50" Weight 207.00 lb BP Systolic 112 mmHg BP Diastolic 78 mmHg Heart Rate 72 /min BMI (Body Mass Index) 39.8 kg/m2 01/25/2016 3:45pm Height 60.5 inches 5'0.50" Weight 202.00 lb BMI (Body Mass Index) 38.8 kg/m2 09/02/2015 4:03pm Height 60.5 inches 5'0.50" Weight 200.00 lb BMI (Body Mass Index) 38.4 kg/m2 07/14/2015 8:06am Height 60.5 inches 5'0.50" Weight 202.00 lb BP Systolic 122 mmHg BP Diastolic 78 mmHg Heart Rate 70 /min BMI (Body Mass Index) 38.8 kg/m2 03/09/2015 2:51pm Height 60.5 inches 5'0.50" Weight 191.00 lb BP Systolic 122 mmHg BP Diastolic 70 mmHg Heart Rate 80 /min BMI (Body Mass Index) 36.7 kg/m2 07/03/2014 1:25pm Height 60.5 inches 5'0.50" Weight 189.50 lb BP Systolic 122 mmHg BP Diastolic 74 mmHg Heart Rate 96 /min BMI (Body Mass Index) 36.4 kg/m2 06/19/2014 9:06am Height 60.5 inches 5'0.50" Weight 189.00 lb BP Systolic 138 mmHg BP Diastolic 78 mmHg Heart Rate 68 /min BMI (Body Mass Index) 36.3 kg/m2 03/18/2014 3:53pm Height 60.5 inches 5'0.50" Weight 182.00 lb BP Systolic 136 mmHg BP Diastolic 82 mmHg Heart Rate 72 /min BMI (Body Mass Index) 35.0 kg/m2 08/14/2012 9:30am Height 60.50 inches 5'0.50" Weight 163.00 lb BP Systolic 94 mmHg BP Diastolic 72 mmHg Heart Rate 96 /min BMI (Body Mass Index) 31.3 kg/m2 Results Test Date Facility Test Result H/L Range Note Laboratory 07/24/20 [facility] <0.5 <5.0 test finding [address] [place] [address] [phone] Hepatitis B 07/24/20 [facility] Hepatitis B Not Abnormal Immune Ashtyn AB Titer 18 Surface AB Immune Hep B Surf AB Level < 3.10 mIU/mL >12 Laboratory test 07/24/2018 [facility] Hepatitis B Surface Nonreactive Nonreactive 1 finding Ag Hepatitis B Core AB Total Negative Negative 2 CBC Auto Diff 07/08/2018 [facility] White Blood Count 8.7 10^3/uL N 3.5-10.8 Red Blood Count 5.06 10^6/uL N 4.00-5.40 Hemoglobin 14.6 g/dL N 12.0-16.0 Hematocrit 43 % N 35-47 Mean Corpuscular Volume 86 fL N 80-97 Mean Corpuscular Hemoglobin 29 pg N 27-31 Mean Corpuscular HGB Conc 34 g/dL N 31-36 Red Cell Distribution Width 14 % N 10.5-15 Platelet Count 270 10^3/uL N 150-450 Mean Platelet Volume 7.8 fL N 7.4-10.4 Abs Neutrophils 5.4 10^3/uL N 1.5-7.7 Abs Lymphocytes 2.7 10^3/uL N 1.0-4.8 Abs Monocytes 0.5 10^3/uL N 0-0.8 Abs Eosinophils 0.2 10^3/uL N 0-0.6 Abs Basophils 0 10^3/uL N 0-0.2 Abs Nucleated RBC 0 10^3/uL Granulocyte % 61.5 % N 38-83 Lymphocyte % 30.6 % N 25-47 Monocyte % 5.4 % N 0-7 Eosinophil % 2.1 % N 0-6 Basophil % 0.4 % N 0-2 Nucleated Red Blood Cells % 0.1 Comp Metabolic Panel 07/08/2018 [facility] Sodium 136 mmol/L N 135-145 Potassium 3.5 mmol/L N 3.5-5.0 Chloride 103 mmol/L N 101-111 Co2 Carbon Dioxide 24 mmol/L N 22-32 Anion Gap 9 mmol/L N 2-11 Glucose 110 mg/dL High 70-100 Blood Urea Nitrogen 17 mg/dL N 6-24 Creatinine 0.58 mg/dL N 0.51-0.95 BUN/Creatinine Ratio 29.3 High 8-20 Calcium 9.0 mg/dL N 8.6-10.3 Total Protein 6.5 g/dL N 6.4-8.9 Albumin 3.7 g/dL N 3.2-5.2 Globulin 2.8 g/dL N 2-4 Albumin/Globulin Ratio 1.3 N 1-3 Total Bilirubin 0.80 mg/dL N 0.2-1.0 Alkaline Phosphatase 66 U/L N 34-104 Alt 20 U/L N 7-52 Ast 24 U/L N 13-39 Egfr Non- 125.7 >60 Egfr 152.1 >60 3 Laboratory test finding 07/08/2018 [facility] Magnesium 1.7 mg/dL Low 1.9-2.7 CBC Auto Diff 04/10/2018 [facility] White Blood Count 6.7 10^3/uL N 3.5-10.8 Red Blood Count 4.90 10^6/uL N 4.00-5.40 Hemoglobin 13.8 g/dL N 12.0-16.0 Hematocrit 41 % N 35-47 Mean Corpuscular Volume 84 fL N 80-97 Mean Corpuscular Hemoglobin 28 pg N 27-31 Mean Corpuscular HGB Conc 34 g/dL N 31-36 Red Cell Distribution Width 15 % N 10.5-15 Platelet Count 228 10^3/uL N 150-450 Mean Platelet Volume 7.7 um3 N 7.4-10.4 Abs Neutrophils 3.8 10^3/uL N 1.5-7.7 Abs Lymphocytes 2.3 10^3/uL N 1.0-4.8 Abs Monocytes 0.5 10^3/uL N 0-0.8 Abs Eosinophils 0.2 10^3/uL N 0-0.6 Abs Basophils 0 10^3/uL N 0-0.2 Abs Nucleated RBC 0 10^3/uL Granulocyte % 56.2 % N 38-83 Lymphocyte % 33.4 % N 25-47 Monocyte % 7.5 % High 0-7 Eosinophil % 2.6 % N 0-6 Basophil % 0.3 % N 0-2 Nucleated Red Blood Cells % 0 Comp Metabolic Panel 04/10/2018 [facility] Sodium 137 mmol/L N 135-145 Potassium 3.8 mmol/L N 3.5-5.0 Chloride 106 mmol/L N 101-111 Co2 Carbon Dioxide 25 mmol/L N 22-32 Anion Gap 6 mmol/L N 2-11 Glucose 120 mg/dL High 70-100 Blood Urea Nitrogen 8 mg/dL N 6-24 Creatinine 0.52 mg/dL N 0.51-0.95 BUN/Creatinine Ratio 15.4 N 8-20 Calcium 9.0 mg/dL N 8.6-10.3 Total Protein 6.6 g/dL N 6.4-8.9 Albumin 3.8 g/dL N 3.2-5.2 Globulin 2.8 g/dL N 2-4 Albumin/Globulin Ratio 1.4 N 1-3 Total Bilirubin 0.90 mg/dL N 0.2-1.0 Alkaline Phosphatase 66 U/L N 34-104 Alt 25 U/L N 7-52 Ast 15 U/L N 13-39 Egfr Non- 142.5 >60 Egfr 172.5 >60 4 CBC Auto Diff 01/09/2018 [facility] White Blood Count 6.1 10^3/uL N 3.5-10.8 Red Blood Count 4.86 10^6/uL N 4.0-5.4 Hemoglobin 14.1 g/dL N 12.0-16.0 Hematocrit 41 % N 35-47 Mean Corpuscular Volume 83 fL N 80-97 Mean Corpuscular Hemoglobin 29 pg N 27-31 Mean Corpuscular HGB Conc 35 g/dL N 31-36 Red Cell Distribution Width 13 % N 10.5-15 Platelet Count 259 10^3/uL N 150-450 Mean Platelet Volume 7.7 um3 N 7.4-10.4 Abs Neutrophils 3.4 10^3/uL N 1.5-7.7 Abs Lymphocytes 2.2 10^3/uL N 1.0-4.8 Abs Monocytes 0.5 10^3/uL N 0-0.8 Abs Eosinophils 0.1 10^3/uL N 0-0.6 Abs Basophils 0 10^3/uL N 0-0.2 Abs Nucleated RBC 0 10^3/uL Granulocyte % 54.9 % N 38-83 Lymphocyte % 35.4 % N 25-47 Monocyte % 7.9 % High 0-7 Eosinophil % 1.2 % N 0-6 Basophil % 0.6 % N 0-2 Nucleated Red Blood Cells % 0.1 Comp Metabolic Panel 01/09/2018 [facility] Sodium 136 mmol/L Low 139-145 Potassium 3.8 mmol/L N 3.5-5.0 Chloride 106 mmol/L N 101-111 Co2 Carbon Dioxide 26 mmol/L N 22-32 Anion Gap 4 mmol/L N 2-11 Glucose 97 mg/dL N 70-100 Blood Urea Nitrogen 12 mg/dL N 6-24 Creatinine 0.50 mg/dL Low 0.51-0.95 BUN/Creatinine Ratio 24.0 High 8-20 Calcium 9.1 mg/dL N 8.6-10.3 Total Protein 7.2 g/dL N 6.4-8.9 Albumin 4.0 g/dL N 3.2-5.2 Globulin 3.2 g/dL N 2-4 Albumin/Globulin Ratio 1.3 N 1-3 Total Bilirubin 1.00 mg/dL N 0.2-1.0 Alkaline Phosphatase 62 U/L N 34-104 Alt 35 U/L N 7-52 Ast 19 U/L N 13-39 Egfr Non- 149.1 >60 Egfr 191.8 >60 5 Comp Metabolic Panel 10/18/2017 [facility] Sodium 138 mmol/L N 133-145 Potassium 4.0 mmol/L N 3.5-5.0 Chloride 106 mmol/L N 101-111 Co2 Carbon Dioxide 26 mmol/L N 22-32 Anion Gap 6 mmol/L N 2-11 Glucose 93 mg/dL N 70-100 Blood Urea Nitrogen 14 mg/dL N 6-24 Creatinine 0.58 mg/dL N 0.51-0.95 BUN/Creatinine Ratio 24.1 High 8-20 Calcium 9.3 mg/dL N 8.6-10.3 Total Protein 6.9 g/dL N 6.4-8.9 Albumin 3.8 g/dL N 3.2-5.2 Globulin 3.1 g/dL N 2-4 Albumin/Globulin Ratio 1.2 N 1-3 Total Bilirubin 0.60 mg/dL N 0.2-1.0 Alkaline Phosphatase 66 U/L N 34-104 Alt 28 U/L N 7-52 Ast 14 U/L N 13-39 Egfr Non- 125.7 >60 Egfr 161.6 >60 6 CBC Auto Diff 10/18/2017 [facility] White Blood Count 7.1 10^3/uL N 3.5-10.8 Red Blood Count 5.00 10^6/uL N 4.0-5.4 Hemoglobin 14.4 g/dL N 12.0-16.0 Hematocrit 42 % N 35-47 Mean Corpuscular Volume 84 fL N 80-97 Mean Corpuscular Hemoglobin 29 pg N 27-31 Mean Corpuscular HGB Conc 34 g/dL N 31-36 Red Cell Distribution Width 14 % N 10.5-15 Platelet Count 248 10^3/uL N 150-450 Mean Platelet Volume 8 um3 N 7.4-10.4 Abs Neutrophils 4.3 10^3/uL N 1.5-7.7 Abs Lymphocytes 2.2 10^3/uL N 1.0-4.8 Abs Monocytes 0.4 10^3/uL N 0-0.8 Abs Eosinophils 0.1 10^3/uL N 0-0.6 Abs Basophils 0.1 10^3/uL N 0-0.2 Abs Nucleated RBC 0 10^3/uL Granulocyte % 60.1 % N 38-83 Lymphocyte % 31.1 % N 25-47 Monocyte % 6.0 % N 0-7 Eosinophil % 1.7 % N 0-6 Basophil % 1.1 % N 0-2 Nucleated Red Blood Cells % 0 Laboratory test 10/04/2017 [facility] Surgical Interface SEE RESULT BELOW 7, 8 finding Order Comp Metabolic Panel 07/25/2017 [facility] Sodium 136 mmol/L N 133-145 Potassium 3.9 mmol/L N 3.5-5.0 Chloride 105 mmol/L N 101-111 Co2 Carbon Dioxide 25 mmol/L N 22-32 Anion Gap 6 mmol/L N 2-11 Glucose 87 mg/dL N 70-100 Blood Urea Nitrogen 10 mg/dL N 6-24 Creatinine 0.59 mg/dL N 0.51-0.95 BUN/Creatinine Ratio 16.9 N 8-20 Calcium 8.9 mg/dL N 8.6-10.3 Total Protein 6.8 g/dL N 6.4-8.9 Albumin 3.8 g/dL N 3.2-5.2 Globulin 3.0 g/dL N 2-4 Albumin/Globulin Ratio 1.3 N 1-3 Total Bilirubin 1.00 mg/dL N 0.2-1.0 Alkaline Phosphatase 58 U/L N 34-104 Alt 18 U/L N 7-52 Ast 15 U/L N 13-39 Egfr Non- 124.2 >60 Egfr 159.7 >60 9 CBC Auto Diff 07/25/2017 [facility] White Blood Count 6.8 10^3/uL N 3.5-10.8 Red Blood Count 5.22 10^6/uL N 4.0-5.4 Hemoglobin 14.4 g/dL N 12.0-16.0 Hematocrit 43 % N 35-47 Mean Corpuscular Volume 82 fL N 80-97 Mean Corpuscular Hemoglobin 28 pg N 27-31 Mean Corpuscular HGB Conc 34 g/dL N 31-36 Red Cell Distribution Width 14 % N 10.5-15 Platelet Count 275 10^3/uL N 150-450 Mean Platelet Volume 8 um3 N 7.4-10.4 Abs Neutrophils 3.7 10^3/uL N 1.5-7.7 Abs Lymphocytes 2.3 10^3/uL N 1.0-4.8 Abs Monocytes 0.5 10^3/uL N 0-0.8 Abs Eosinophils 0.2 10^3/uL N 0-0.6 Abs Basophils 0 10^3/uL N 0-0.2 Abs Nucleated RBC 0 10^3/uL Granulocyte % 54.1 % N 38-83 Lymphocyte % 34.4 % N 25-47 Monocyte % 7.7 % N 1-9 Eosinophil % 3.2 % N 0-6 Basophil % 0.6 % N 0-2 Nucleated Red Blood Cells % 0 Xray 07/04/2016 [facility] Radiology CT Abd/Pel W/O <pending> Laboratory 03/02/2016 [facility] Surgical SEE RESULT 10, test finding Interface Order BELOW 11 Laboratory 03/02/2016 [facility] Clotest SEE RESULT 12, test finding BELOW 13 Surgical 07/07/2014 [facility] S RUN DATE: Pathology 07/09/ <SEE NOTE> Laboratory 06/19/2014 [facility] Esr Sedimentation 08 MM 0-2 test finding [address] Rate(!) 0 [place] [address] [phone] CBC W/Auto 06/19/2014 [facility] White Blood Count 7.7 3/ UL 4.8 Differential(! [address] Ser Auto CNT -10 ) [place] [address] .8 [phone] RBC Red Blood Count 5.23 X106/UL 4.20-6.20 Hemoglobin Blood 14.8 g/dL 12.0-18.0 Hematocrit 44.3 % 35-52 MCV (Corpuscular Volume) 84.7 FL 79-97 MCH (Corpuscular Hemoglobin) 28.3 pg 27-31 MCHC (Corpuscular Hemog Conc) 33.4 g/dL 32.0-36.0 RDW 13.0 % 10.5-15.0 Platelet Count Blood Auto CNT 259 X103/UL 150-450 MPV 6.8 FL Low 7.4-10.4 Lymph% 30.5 % 20.0-45.0 [place]% 5.3 % 1.0-9.0 Neutrophil % 64.2 % 38.0-83.0 Absolute Lymphocytes 2.3 X103/UL 1.0-4.8 Absolute Monocytes 0.4 X103/UL 0.0-0.8 Absolute Neutrophils 4.9 X103/UL 1.5-7.7 Laboratory test 06/19/2014 [facility] C Reactive Protein 1.18 mg/L N < 5.00 14 finding [place] 07/29/2012 [facility] <pending> Observations [facility] 06/27/2012 [facility] <pending> Observations [facility] 04/11/2012 [facility]Other <pending> Observations [facility] 04/11/2012 [facility]Other <pending> Observations [facility] 1991 [facility] Z#Other <pending> Observations 1 [id number] PLEASE CENTRIFUGE SERUM SAMPLE SENT TO [facility] THAT HAS NOT SPUN 2 Test Performed by: [facility] [address] [place] [id number] 3 Because ethnic data is not always readily available, this report includes an eGFR for both -Americans and non- Americans. The National Kidney Disease Education Program (NKDEP) does not endorse the use of the MDRD equation for patients that are not between the ages of 18 and 70, are , have extremes of body size, muscle mass, or nutritional status, or are non- or non-. According to the National Kidney Foundation, irrespective of diagnosis, the stage of the disease is based on the level of kidney function: Stage Description GFR(mL/min/1.73 m(2)) 1 Kidney damage with normal or decreased GFR 90 2 Kidney damage with mild decrease in GFR 60-89 3 Moderate decrease in GFR 30-59 4 Severe decrease in GFR 15-29 5 Kidney failure <15 (or dialysis) 4 Because ethnic data is not always readily available, this report includes an eGFR for both -Americans and non- Americans. The National Kidney Disease Education Program (NKDEP) does not endorse the use of the MDRD equation for patients that are not between the ages of 18 and 70, are , have extremes of body size, muscle mass, or nutritional status, or are non- or non-. According to the National Kidney Foundation, irrespective of diagnosis, the stage of the disease is based on the level of kidney function: Stage Description GFR(mL/min/1.73 m(2)) 1 Kidney damage with normal or decreased GFR 90 2 Kidney damage with mild decrease in GFR 60-89 3 Moderate decrease in GFR 30-59 4 Severe decrease in GFR 15-29 5 Kidney failure <15 (or dialysis) 5 Because ethnic data is not always readily available, this report includes an eGFR for both -Americans and non- Americans. The National Kidney Disease Education Program (NKDEP) does not endorse the use of the MDRD equation for patients that are not between the ages of 18 and 70, are , have extremes of body size, muscle mass, or nutritional status, or are non- or non-. According to the National Kidney Foundation, irrespective of diagnosis, the stage of the disease is based on the level of kidney function: Stage Description GFR(mL/min/1.73 m(2)) 1 Kidney damage with normal or decreased GFR 90 2 Kidney damage with mild decrease in GFR 60-89 3 Moderate decrease in GFR 30-59 4 Severe decrease in GFR 15-29 5 Kidney failure <15 (or dialysis) 6 Because ethnic data is not always readily available, this report includes an eGFR for both -Americans and non- Americans. The National Kidney Disease Education Program (NKDEP) does not endorse the use of the MDRD equation for patients that are not between the ages of 18 and 70, are , have extremes of body size, muscle mass, or nutritional status, or are non- or non-. According to the National Kidney Foundation, irrespective of diagnosis, the stage of the disease is based on the level of kidney function: Stage Description GFR(mL/min/1.73 m(2)) 1 Kidney damage with normal or decreased GFR 90 2 Kidney damage with mild decrease in GFR 60-89 3 Moderate decrease in GFR 30-59 4 Severe decrease in GFR 15-29 5 Kidney failure <15 (or dialysis) 7 [id number] SEE RESULT BELOW Name: IVIS COREY : [address]: Curtis James MD Acct: [id number] Unit: [id number] AGE: 27 Location: [facility] Re10/04/17 SEX: F Status: DEP REF SPEC: [id number] RUBY: 10/04/1732 [facility] DR: Curtis James MD REQ: [id number] RECD: 10/04/17 STATUS: TAMRA PLEITEZ DR: Phong Monreal MD _ ORDERED: LEVEL 4/3 COMMENTS: [id number] FINAL DIAGNOSIS 1. Colon, right, biopsy: -- Benign colonic mucosa with no significant pathologic abnormalities. -- No evidence of chronic or microscopic colitis. 2. Colon, transverse, biopsy: -- Benign colonic mucosa with no significant pathologic abnormalities. -- No evidence of chronic or microscopic colitis. 3. Colon, left, biopsy: -- Benign colonic mucosa with no significant pathologic abnormalities. -- No evidence of chronic or microscopic colitis. CLINICAL HISTORY Crohn?s disease POST-OPERATIVE DIAGNOSIS Colonoscopy to terminal ileum ? normal; random biopsy; 5 years GROSS DESCRIPTION 1. The specimen is received in formalin labeled, Biopsy Right Colon, and consists of a 1.1 by up to 0.7 x 0.1 cm aggregate of bonilla irregular soft tissue fragments which is submitted entirely in one cassette. 2. The specimen is received in formalin labeled, Biopsy Transverse Colon, and consists of a 1.3 x 0.8 x 0.1 cm aggregate of bonilla-pink irregular soft tissue fragments which is submitted entirely in one cassette. 3. The specimen is received in formalin labeled, Left Colon Biopsy, and consists of a 1.1 CONTINUED ON NEXT PAGE * ML=Testing performed at Main Lab DEPARTMENT OF PATHOLOGY, [address] [place] [address] Jorden Zapata M.D. Director [facility] # [id number] RUN DATE: 10/05/17 [facility] LAB LIVE PAGE 2 Patient: SHARON COREYNARA Miranda [id number] (Continued) GROSS DESCRIPTION (Continued) GROSS DESCRIPTION (Continued) x 0.8 x 0.1 cm aggregate of bonilla-pink irregular soft tissue fragments which is submitted entirely in one cassette. Signed (signature on file) Tiera Beard MD 05/14 1156 END OF REPORT * ML=Testing performed at Main Lab DEPARTMENT OF PATHOLOGY, [address] [place] [address] Jorden Zapata M.D. Director [facility] # [id number] 9 Because ethnic data is not always readily available, this report includes an eGFR for both -Americans and non- Americans. The National Kidney Disease Education Program (NKDEP) does not endorse the use of the MDRD equation for patients that are not between the ages of 18 and 70, are , have extremes of body size, muscle mass, or nutritional status, or are non- or non-. According to the National Kidney Foundation, irrespective of diagnosis, the stage of the disease is based on the level of kidney function: Stage Description GFR(mL/min/1.73 m(2)) 1 Kidney damage with normal or decreased GFR 90 2 Kidney damage with mild decrease in GFR 60-89 3 Moderate decrease in GFR 30-59 4 Severe decrease in GFR 15-29 5 Kidney failure <15 (or dialysis) 10 [id number] 11 SEE RESULT BELOW Name: JOSELETITIAAlhajiIVIS Miranda : [address]: Curtis James MD Acct: [id number] Unit: [id number] AGE: 25 Location: [facility] Re03/02/16 SEX: F Status: REG REF SPEC: [id number] RUBY: 03/02/16- SUBM DR: Curtis James MD REQ: [id number] RECD: 03/02/16-1222 STATUS: TAMRA PLEITEZ DR: Phong Monreal MD _ ORDERED: LEVEL IV COMMENTS: [id number] FINAL DIAGNOSIS Duodenum, biopsy: -- Benign small intestinal mucosa with no significant pathologic abnormalities. -- No evidence of villous blunting or increased intraepithelial lymphocytes. POST-OPERATIVE DIAGNOSIS Esophagus: small hiatal hernia, Grade A eosinophilic esophagitis, Stomach: biopsy - small erosions, Duodenum: biopsy. GROSS DESCRIPTION The specimen is received in formalin labeled, Duodenal Biopsy, and consists of two bonilla-pink irregular soft tissue fragments measuring 0.3 x 0.2 x 0.1 cm and 0.5 x 0.2 x 0.2 cm, which are submitted entirely in one cassette. Signed (signature on file) Tiera Beard MD 04/11 1343 END OF REPORT * ML=Testing performed at Main Lab DEPARTMENT OF PATHOLOGY, [address] [place] [address] Jorden Zapata M.D. Director [facility] # [id number] 12 [id number] SEE RESULT BELOW Name: IVIS CORTES : [address]: Curtis James MD Acct: [id number] Unit: [id number] AGE: 25 Location: [facility] Re03/02/16 SEX: F Status: REG REF SPEC: [id number] RUBY: 03/02/16-906 [facility] [address]: Curtis James MD REQ: [id number] RECD: 03/02/16-1214 STATUS: ANGELINA PLEITEZ DR: Phong Monreal MD _ SOURCE: GAS ANTRUM SPDESC: ORDERED: Clotest COMMENTS: [id number] Procedure Result Reported Site Clotest Final 03/03/16- 0754 ML Clotest Negative * ML - MAIN LAB (PSC1) . END OF REPORT * ML=Testing performed at Main Lab DEPARTMENT OF PATHOLOGY, [address] [place] [address] Jorden Zapata M.D. Director [facility] # [id number] 14 Acute inflammation: >10.00 Procedures Date Code Description Status 10/04/2017 41721 Moderate Sedation Services; Same Phys Each Additional 15 Completed Mins 10/04/2017 20169 Moderate Sedation Services; Same Phys Intl 15 Mins; PT >=5 Completed Years 10/04/2017 46518 Colonscopy+Biopsy Completed 03/02/2016 80839 EGD+Biopsy Single Or Multiple Completed 07/07/2014 50380 Colonscopy+Biopsy Completed Encounters Type Date Location Provider Dx Diagnosis Office Visit 07/24/2018 Gastroenterology Curtis Bear K50.818 Crohn's disease of 1:30p [facility] both small and lg int w ot complication Z79.899 Other termite helper (current) drug therapy Office 06/27/2017 Gastroenterlakesha Bear K50.818 Crohn's disease Visit 2:45p [facility] of both small and lg int w oth complication Office 11/16/2016 Gastroenterlakesha Bear K50.818 Crohn's disease Visit 2:00p [facility] of both small and lg int w ot complication Z79.899 Other termite helper (current) drug therapy Office 07/05/2016 Gastroenterlakesha Bear K50.818 Crohn's disease Visit 11:45a [facility] of both small and lg int w oth complication Office 01/25/2016 Gastroenterlakesha Bear R10.13 Epigastric pain Visit 3:45p [facility] MD K21.9 Gastro-esophageal reflux disease without esophagitis Office Visit 09/02/2015 Constantine Bear R10.11 Right upper 4:00p [facility] quadrant pain K50.818 Crohn's disease of both small and lg int w oth complication K62.5 Hemorrhage of anus and rectum Office Visit 07/14/2015 Gastroenterlakesha Bear R21 Rash and other 8:00a [facility] nonspecific skin eruption K50.818 Crohn's disease of both small and lg int w oth complication K50.819 Crohn's disease of both small and lg int w unsp comp Office Visit 03/09/2015 2:45p [facility]enter[facility] Alyssa Ho 555.9 [facility] 789.63 Tenderness Abdominal Right Lower Quadrant Office Visit 07/03/2014 1:30p Gastroenterlakesha Ho 578.1 Blood In [facility] TABATHA Hanna-Shirin Stool 455.3 Hemorrhoids External W/O Complication 555.9 Crohn's Disease Office Visit 06/19/2014 9:00a [facility]astroenterl[facility] Ho 555.9 [facility] TABATHA Hanna-C Disease Office Visit 03/18/2014 4:00p [facility]enter[facility] Bear 555.9 [facility] MD Disease Office Visit 08/14/2012 9:30a [facility] Bear 555.9 [facility] Disease Plan of Treatment 07/24/2018 - Curtis James MDK50.818 Crohn's disease of both small and large intestine with other [id number]:Long d/w pt and ; remicade has been wearing off or developing ab; need to switch; having increased sx consisent with flare; will check hep b sero; 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
--- OUTSIDE RECORDS SUMMARY | 2018-08-28 15:00 | XMS REPORT | Continuity of Care Document ---
:1990 External Reference #:[id number] Author Name Izabel Forman Care Team Providers Name Role Phone Phong Monreal MD Care Team Information [employer] Unavailable Phong Monreal MD Primary Care Physician Unavailable Payers Type Date Identification Numbers Payment Provider Subscriber Policy Number: [id number] Of [employer] Ivis Corey PayID: [id number] [address] [address] [place]born[employer] nino [address] Advance Directives Description No Information Available Problems [...] 0.125mg 30tab take 1 to K50.818 Curtis Chema Sulfate SL 2018 s 3 tablets Erika by mouth daily as needed for diarrhea, pain Emla 02/06/ Active Cream 2.5-2.5% 50gm apply Crutis D. 2016 small dab Erika, to port MD site before infusion Protonix 01/24/ Active Tablets [...] Solution 240gm 4000m by mouth K50.818 Curtis Bear Flavor Packs 2016 - Rec l as [...] 28cap 1 by Curtis Bear Hyclate 2014 mouth Erika, 01/24/ twice a 2015 day x 14 days Pantoprazole 07/14/ Hx Tablets DR 40mg 90tab 1 by Curtis Bear Sodium 2014 mouth Erika, 11/16/ every day 2016 Miralax 07/03/ Hx Powder 3350NF 1unit As 455.3 Alyssa Ho 2013 - s directed Jacques, 07/06/ LEGISLATIVE ADVOCATE-C 2013 Prednisone 06/19/ Hx Tablets 5mg 45tab 20mg x 5 Alyssa [place] 2013 days, Amisano, 07/14/ 15mg x 5 LEGISLATIVE ADVOCATE-C 2014 days, 10mg x 3 days, 5mg x 3 days Vitamin B-Complex 03/18/ Hx Injection 100 2 per Curtis D. 100 2013 - Erika, 2015 Prilosec / Hx Capsules DR 20mg 30cap 1 po qd Unknown - s 2014 Depo-Testosterone / Hx Oil 100mg/ml Unknown - 2015 Allergy Shots / Hx once Unknown 0000 - weekly 2013 Tramadol HCL / Hx Tablets 50mg Unknown - 2016 Cyclobenzaprine / Hx Tablets 10mg Unknown HCL - 2015 Protonix 00/ Hx Tablets DR 20mg Daily Unknown - 2015 Depo-Provera / Hx Suspension 400mg/ml Every 3 Unknown - Months 2016 Lo Loestrin Fe 00/ Hx Tablets 1mg-10 Unknown mcg Control Pill 2018 Immunizations Description No Information [...] Associates C-Reative <0.5 <5.0 test finding [address] [place] [address] [phone] Hepatitis B 07/24/20 [facility] Hepatitis B Not Abnormal Immune Ashtyn AB Titer 18 Surface AB Immune Hep B Surf AB Level < 3.10 mIU/mL >12 Laboratory test 07/24/2018 [facility] Hepatitis B Surface Nonreactive Nonreactive 1 finding Ag Hepatitis B Core AB Total Negative Negative 2 CBC Auto Diff 07/08/2018 [facility] White Blood Count 8.7 10^3/uL N 3.5-10.8 [...] Cells % 0.1 Comp Metabolic Panel 07/08/2018 [facility] Sodium 136 mmol/L N 135-145 Potassium 3.5 [...] 152.1 >60 3 Laboratory test finding 07/08/2018 [facility] Magnesium 1.7 mg/dL Low 1.9-2.7 CBC Auto Diff 04/10/2018 [facility] White Blood Count 6.7 10^3/uL N 3.5-10.8 [...] Cells % 0 Comp Metabolic Panel 04/10/2018 [facility] Sodium 137 mmol/L N 135-145 Potassium 3.8 [...] 172.5 >60 4 CBC Auto Diff 01/09/2018 [facility] White Blood Count 6.1 10^3/uL N 3.5-10.8 [...] Cells % 0.1 Comp Metabolic Panel 01/09/2018 [facility] Sodium 136 mmol/L Low 139-145 Potassium 3.8 [...] Blood Cells % 0 Laboratory test 10/04/2017 [facility] Surgical Interface SEE RESULT BELOW 7, 8 finding Order Comp Metabolic Panel 07/25/2017 [facility] Sodium 136 mmol/L N 133-145 Potassium 3.9 [...] 159.7 >60 9 CBC Auto Diff 07/25/2017 [facility] White Blood Count 6.8 10^3/uL N 3.5-10.8 [...] Red Blood Cells % 0 Xray 07/04/2016 [facility] Radiology CT Abd/Pel W/O <pending> Laboratory 03/02/2016 [facility] Surgical SEE RESULT 10, test finding Interface Order BELOW 11 Laboratory 03/02/2016 [facility] Clotest SEE RESULT 12, test finding BELOW 13 Surgical 07/07/2014 [facility] S RUN DATE: Pathology 07/09/ <SEE NOTE> Laboratory 06/19/2014 [facility] Esr Sedimentation 08 MM 0-2 test finding [address] Rate(!) [address] [place] [address] [phone] CBC W/Auto 06/19/2014 [facility] White Blood Count 7.7 3/ UL 4.8 Differential(! [address] Ser Auto CNT -10 ) [place] [address] .8 [phone] RBC Red Blood Count 5.23 X106/UL 4.20-6.20 Hemoglobin Blood 14.8 g/dL 12.0-18.0 Hematocrit 44.3 % 35-52 MCV (Corpuscular Volume) 84.7 FL 79-97 MCH (Corpuscular Hemoglobin) 28.3 pg 27-31 MCHC (Corpuscular Hemog Conc) 33.4 g/dL 32.0-36.0 RDW 13.0 % 10.5-15.0 Platelet Count Blood Auto CNT 259 X103/UL 150-450 MPV 6.8 FL Low 7.4-10.4 Lymph% 30.5 % 20.0-45.0 [place]% 5.3 % 1.0-9.0 Neutrophil % 64.2 % 38.0-83.0 Absolute Lymphocytes 2.3 X103/UL 1.0-4.8 Absolute Monocytes 0.4 X103/UL 0.0-0.8 Absolute Neutrophils 4.9 X103/UL 1.5-7.7 Laboratory test 06/19/2014 [facility] C Reactive Protein 1.18 mg/L N < 5.00 14 finding Tyrone 07/29/2012 [facility] Z#Other <pending> Observations [place] 06/27/2012 [facility] Z#Other <pending> Observations [facility] 04/11/2012 [facility] Z#Other <pending> Observations [facility] 04/11/2012 [facility] Z#Other <pending> Observations [facility] 1990 Patient[facility] Choice Z#Other <pending> Observations 1 [id number] PLEASE CENTRIFUGE SERUM SAMPLE SENT TO [facility] THAT HAS NOT SPUN 2 Test Performed by: [facility] [address] [place] [address] 3 Because ethnic data is not always [...] 5 Kidney failure <15 (or dialysis) 7 [id number] 8 SEE RESULT BELOW Name: IVIS COREY Ruth : [address]: Curtis James MD Acct: [id number] Unit: [id number] AGE: 27 Location: [facility] Re10/04/17 SEX: F Status: DEP REF SPEC: [id number] RUBY: 10/04/17-[address] [facility] [address]: Curtis James MD REQ: [id number] RECD: 10/04/17 STATUS: TAMRA PLEITEZ DR: Phong Monreal MD _ ORDERED: LEVEL 4/3 COMMENTS: [id number] FINAL DIAGNOSIS 1. Colon, right, biopsy: -- [...] performed at Main Lab DEPARTMENT OF PATHOLOGY, [address] [place] [address] Jorden Zapata M.D. Director [facility] # [id number] RUN DATE: 10/05/17 [facility] LAB LIVE PAGE 2 Patient: SHARON COREYNARA Miranda [id number] (Continued) GROSS DESCRIPTION (Continued) GROSS DESCRIPTION (Continued) x 0.8 x 0.1 cm aggregate of bonilla-pink irregular soft tissue fragments which is submitted entirely in one cassette. Signed (signature on file) Tiera Beard MD 05/14 1156 END OF REPORT * ML=Testing performed at Main Lab DEPARTMENT OF PATHOLOGY, [address] [place] [address] Jorden Zapata M.D. Director [facility] # [id number] 9 Because ethnic data is not always [...] 5 Kidney failure <15 (or dialysis) 10 [id number] 11 SEE RESULT BELOW Name: IVIS CORTES : [address]: Curtis James MD Acct: [id number] Unit: [id number] AGE: 25 Location: [facility] Re03/02/16 SEX: F Status: REG REF SPEC: [id number] RUBY: 03/02/16- SUBM DR: Curtis James MD REQ: [id number] RECD: 03/02/16-1222 STATUS: TAMRA PLEITEZ DR: Phong Monreal MD _ ORDERED: LEVEL IV COMMENTS: [id number] FINAL DIAGNOSIS Duodenum, biopsy: -- Benign small [...] performed at Main Lab DEPARTMENT OF PATHOLOGY, [address] [place] [address] Jorden Zapata M.D. Director [facility] # [id number] 12 [id number] 13 SEE RESULT BELOW Name: IVIS CORTES : [address]: Curtis James MD Acct: [id number] Unit: [id number] AGE: 25 Location: [facility] Re03/02/16 SEX: F Status: REG REF SPEC: [id number] RUBY: 03/02/[address]: Curtis James MD REQ: [id number] RECD: 03/02/16 STATUS: ANGELINA PLEITEZ DR: Phong Monreal MD _ SOURCE: GAS ANTRUM SPDESC: ORDERED: Whitley COMMENTS: [id number] Procedure Result Reported Site Clotest Final 03/03/16- 0754 ML Clotest Negative * ML - MAIN LAB ([facility]) . END OF REPORT * ML=Testing performed at Main Lab DEPARTMENT OF PATHOLOGY, [address] [place] [address] Jorden Zapata M.D. Director [facility] # [id number] 14 Acute inflammation: >10.00 Procedures Date Code Description Status 10/04/2017 00096 Moderate Sedation Services; Same Phys Each Additional 15 Completed Mins 10/04/2017 11195 Moderate Sedation Services; Same Phys Intl 15 Mins; PT >=5 Completed Years 10/04/2017 34075 Colonscopy+Biopsy Completed 03/02/2016 43118 EGD+Biopsy Single Or Multiple Completed 07/07/2014 94477 Colonscopy+Biopsy Completed Encounters Type Date Location Provider Dx Diagnosis Office Visit 07/24/2018 Gastroenterlakesha Bear K50.818 Crohn's disease of 1:30p [facility] both small and lg int w ot complication Z79.899 Other group home (current) drug therapy Office 06/27/2017 Constantine Bear K50.818 Crohn's disease Visit 2:45p [facility] of both small and lg int w oth complication Office 11/16/2016 Constantine Bear K50.818 Crohn's disease Visit 2:00p [facility] Javan James MD of both small and lg int w oth complication Z79.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 Office 07/05/2016 Constantine Bear K50.818 Crohn's disease Visit 11:45a [facility] MD of both small and lg int w oth complication Office 01/25/2016 Gastroenterlakesha Bear R10.13 Epigastric pain Visit 3:45p [facility] MD K21.9 Gastro-esophageal reflux disease without esophagitis Office Visit 09/02/2015 Gastroenterology Curtis Bear R10.11 Right upper 4:00p [facility] quadrant pain K50.818 Crohn's disease of both small and lg int w oth complication K62.5 Hemorrhage of anus and rectum Office Visit 07/14/2015 Gastroenterology Curtis Bear R21 Rash and other 8:00a [facility] MD nonspecific skin eruption K50.818 Crohn's disease of both small and lg int w oth complication K50.819 Crohn's disease of both small and lg int w unsp comp Office Visit 03/09/2015 2:45p [facility]enterology Alyssa Ho 555.9 [facility] Disease 789.63 Tenderness Abdominal Right Lower Quadrant Office Visit 07/03/2014 1:30p Gastroenterology Alyssa Ho 578.1 Blood In [facility] Stool 455.3 Hemorrhoids External W/O Complication 555.9 Crohn's Disease Office Visit 06/19/2014 9:00a Gastroenterology Alyssa Ho 555.9 [facility] Disease Office Visit 03/18/2014 4:00p Gastroenterology Curtis Bear 555.9 [facility] J[facility] James MD Disease Office Visit 08/14/2012 9:30a [facility]astroenter[facility] Curtis Bear 555.9 [facility] MD Disease Plan of Treatment 07/24/2018 - Curtis James MDK50.818 Crohn's disease of both small and large intestine with other [id number]:Long d/w pt and ; remicade has been wearing off or developing ab; need to switch; having increased sx consisent with flare; will check hep b sero; 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
[2018-08-28 15:02] VITALS: BP 125/72
--- NOTE | 2018-08-28 16:00 | UC ---
HPI Febrile Illness - HPI Summary HPI Summary: 28-year-old woman 28-year-old woman comes to clinic today with a chief complaint of fever headache neck pain body aches and a right leg rash. Patient is immunocompromised due to medications for her Crohn's. She started feeling ill yesterday with a headache that neck pain and chills and body aches. Today she noticed a red area on her right lower leg. She notes photophobia. The light makes her photophobia worse. Her neck pain gets worse with movement of her neck. She feels lightheaded. - History of Current Complaint Chief Complaint: UCGeneralIllness Time Seen by Provider: 08/28/18 15:45 Hx Last Menstrual Period: 08/25/18 Pain Intensity: 8 - Allergy/Home Medications Allergies/Adverse Reactions: Allergies Allergy/AdvReac Type Severity Reaction Status Date / Time Adhesive Tape Allergy skin Verified 08/28/18 15:03 irritation, RASH SEASONAL, CATS, DOGS, MOLD Allergy Mild Congestion Uncoded 08/28/18 15:03 PMH/Surg Hx/FS Hx/Imm Hx Previously Healthy: Yes GI/ History: Other - CROHN'S - Surgical History Surgical History: Yes Surgery Procedure, Year, and Place: ILIECTOMY, ILIEOSTOMY 2008,ILEOSTOMY REVERSAL 2009, HERNIA REPAIR 2009. COLONOSCOPY, POWERPORT INSERTION 12/11. WISDOM TEETH WITH SEDATION - Family History Known Family History: Positive: Other - Negative for blood clots - Social History Alcohol Use: Occasionally Alcohol Amount: 2 Substance Use Type: None Smoking Status (MU): Former Smoker Type: Cigarettes Amount Used/How Often: 1 PPD X 4 YEARS Length of Time of Smoking/Using Tobacco: appx 5yrs Have You Smoked in the Last Year: No When Did the Patient Quit Smoking/Using Tobacco: 2 YEARS AGO Household Exposure Type: Cigarettes - Immunization History Most Recent Tetanus Shot: fall 2011 Review of Systems All Other Systems Reviewed And Are Negative: Yes Constitutional: Positive: Fever, Chills Skin: Positive: Rash Eyes: Positive: Photophobia ENT: Positive: Other - MOUTH IS DRY Respiratory: Positive: Negative Cardiovascular: Positive: Negative Gastrointestinal: Positive: Negative Motor: Positive: Negative Neurovascular: Positive: Negative Musculoskeletal: Positive: Myalgia, Other: - NECK PAIN Neurological: Positive: Headache Psychological: Positive: Negative Is Patient Immunocompromised?: Yes Physical Exam Triage Information Reviewed: Yes Appearance: Well-Nourished, Ill-Appearing - MILD/MODERATE, Pain Distress - MILD Vital Signs: Initial Vital Signs Temp 100.5 F 08/28/18 14:58 Pulse 106 08/28/18 14:58 Resp 19 08/28/18 14:58 BP 125/72 08/28/18 14:58 Pulse Ox 100 08/28/18 14:58 Vital Signs Reviewed: Yes Eye Exam: Normal Eyes: Positive: Conjunctiva Clear ENT: Positive: Pharyngeal erythema, Nasal congestion, TMs normal Neck exam: Normal Neck: Positive: Supple, Other: - C/O PAIN WITH ATTEMPTS AT NECK FLEXION AND EXTENSION Respiratory: Positive: Normal breath sounds, No respiratory distress, No accessory muscle use Cardiovascular: Positive: Tachycardia Musculoskeletal: Positive: Strength Intact, ROM Intact Neurological: Positive: Alert, Muscle Tone Normal Psychological Exam: Normal Psychological: Positive: Age Appropriate Behavior Skin: Positive: Rashes - RT ANTERIOR LOWER LEG; 6CM FLAT BLANCHING ERYHTEMATOUS RASH Course/Dx - Course Course Of Treatment: Because the patient is immunocompromiseD due to medications I'm concerned of the possibility of sepsis. I recommended further evaluation and care and emergency Department. The patient declined embolus transport and her will be driving her there. - Diagnoses Provider Diagnosis: Febrile illness, Rash, Immunocompromised state due to drug therapy, Cellulitis of leg, right Discharge - Sign-Out/Discharge Documenting (check all that apply): Patient Departure All imaging exams completed and their final reports reviewed: No Studies - Discharge Plan Condition: Stable Disposition: HOME-RECOMMEND TO ED Patient Education Materials: Cellulitis (ED), Fever in Adults (ED), Acute Headache (ED) Referrals: Phong Monreal MD [Primary Care Provider] - Additional Instructions: GO DIRECTLY TO THE EMERGENCY DEPARTMENT FOR FURTHER EVALUATION. - Billing Disposition and Condition Condition: STABLE Disposition: Home-Recommend to ED
== END 2018-08-28 16:10 | disposition home health service (06) ==
LOC: UCEAST 14:55
DX: T45.1X5A Adverse effect of antineoplastic and immunosuppressive drugs, initial encounter (principal); R50.9 Fever, unspecified; R21 Rash and other nonspecific skin eruption; L03.115 Cellulitis of right lower limb; K50.90 Crohn's disease, unspecified, without complications; Z91.048 Other nonmedicinal substance allergy status; Z91.09 Other allergy status, other than to drugs and biological substances; Z87.891 Personal history of nicotine dependence; Y92.9 Unspecified place or not applicable
CPT/HCPCS: 99212; G0463

== ENCOUNTER 2018-08-28 16:26 | Emergency (ER) | payer BC ==
--- NOTE | 2018-08-28 16:50 | ED ---
Complex/Multi-Sys Presentation - HPI Summary HPI Summary: A 28 y/o female, accompanied by her Alfredo, presents to [facility] with a chief complaint of a headache since the night of 08/27/18. At triage she rated her pain as 9/10. She was referred from [facility] where her reports the patient had a fever of 100.5. She also c/o muscle pain since the night of . She also currently c/o nausea and chills, and a right leg rash. She denies any urinary symptoms, diarrhea, abd pain, dizziness, CP, SOB and vomiting. She reports 4 abd surgeries. She claims that she did get her flu shot. She has a Hx of Chron's disease and takes Entyvio. The patient has been on Remicade 10 years prior to her current medication. She reports that her aunt and uncle also have Chron's disease. Her LNMP started 08/25/18. Vital signs in room: BP 113/75, HR 91 bpm. - History Of Current Complaint Chief Complaint: EDGeneral Time Seen by Provider: 08/28/18 16:39 Hx Obtained From: Patient, Family/Client Service Representative - Alfredo Onset/Duration: Sudden Onset, Lasting Hours, Still Present Timing: Constant, Hours Severity Currently: Severe - 9/10 Severity Initially: Severe Character: Unable To Describe Aggravating Factor(s): Nothing Alleviating Factor(s): Nothing Associated Signs And Symptoms: Positive: Nausea, Fever, Other - positive: muscle pain, fever, chills. Negative: Dizziness, SOB, Chest Pain, Vomiting, Diarrhea, Abdominal Pain - Allergies/Home Medications Allergies/Adverse Reactions: Allergies Allergy/AdvReac Type Severity Reaction Status Date / Time Adhesive Tape Allergy skin Verified 08/28/18 15:03 irritation, RASH SEASONAL, CATS, DOGS, MOLD Allergy Mild Congestion Uncoded 08/28/18 15:03 PMH/Surg Hx/FS Hx/Imm Hx Endocrine/Hematology History: Reports: Hx Anemia - RELATED TO B12 Denies: Hx Diabetes, Hx Thyroid Disease Cardiovascular History: Denies: Hx Congestive Heart Failure, Hx Hypertension Respiratory History: Reports: Hx Asthma - PRN INHALER Denies: Hx Chronic Obstructive Pulmonary Disease (COPD) GI History: Reports: Hx Crohn's Disease, Hx Gastroesophageal Reflux Disease - ON MEDICATION FOR, Other GI Disorders - CROHNS Denies: Hx Ulcer History: Denies: Hx Dialysis, Hx Renal Disease Musculoskeletal History: Reports: Hx Arthritis - BACK, Other Musculoskeletal History - SPINAL STENOSIS, 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 COLONOSCOPY, POWERPORT INSERTION 12/11. WISDOM TEETH WITH SEDATION Hx Anesthesia Reactions: No Infectious Disease History: No Infectious Disease History: Denies: Hx Hepatitis, Hx Human Immunodeficiency Virus (HIV), History Other Infectious Disease, Traveled Outside the [place] in Last 30 Days - Family History Known Family History: Positive: Other - Negative for blood clots, aunt and uncle positive for Chron's disease - Social History Alcohol Use: Occasionally Alcohol Amount: 2 Hx Substance Use: No Substance Use Type: Reports: None Hx Tobacco Use: Yes Smoking Status (MU): Former Smoker Type: Cigarettes Amount Used/How Often: 1 PPD X 4 YEARS Length of Time of Smoking/Using Tobacco: appx 5yrs Have You Smoked in the Last Year: No Review of Systems Positive: Fever, Chills Negative: Chest Pain Negative: Shortness Of Breath Positive: Nausea. Negative: Abdominal Pain, Vomiting, Diarrhea Positive: no symptoms reported Positive: Other - positive: muscle pain Positive: Rash Neurological: Other - Negative: dizziness Positive: Headache All Other Systems Reviewed And Are Negative: Yes Physical Exam - Summary Physical Exam Summary: Appearance: Ill-appearing, moderate pain distress, well-nourished Skin: Warm, color reflects adequate perfusion, dry, Rash right lower anterior tibia 12 cm Head: Normal Head/Face inspection, atraumatic Eyes: Conjunctiva clear ENT: Normal inspection Neck: Supple, no nodes, no JVD Respiratory: Lungs clear, normal breath sounds, no respiratory distress Cardio: RRR, No murmur, pulses normal, brisk capillary refill Abdomen: Soft, nontender Bowel sounds: Present Musculoskeletal: Strength Intact/ROM intact, no calf tenderness, no edema, Rash right lower anterior tibia 12 cm Psychological: Normal Neuro: Alert, muscle tone normal, no focal deficit Triage Information Reviewed: Yes Vital Signs On Initial Exam: Initial Vitals Temp Pulse Resp BP Pulse Ox 99.8 F 105 16 121/70 98 08/28/18 16:35 08/28/18 16:35 08/28/18 16:35 08/28/18 16:35 08/28/18 16:35 Vital Signs Reviewed: Yes Diagnostics - Vital Signs Vital Signs Temp Pulse Resp BP Pulse Ox 08/28/18 16:35 99.8 F 105 16 121/70 98 - Laboratory Result Diagrams: 08/28/18 18:28 08/28/18 18:28 Lab Statement: Any lab studies that have been ordered have been reviewed, and results considered in the medical decision making process. - Radiology CXR Radiology Interpretation Completed By: Radiologist Summary of Radiographic Findings: No active cardiopulmonary disease is noted. ED provider has reviewed this imaging report. Re-Evaluation - Re-Evaluation First Eval Re-Evaluation Time: 21:12 Change: Unchanged Comment: BP in room 113/75, HR 91 bpm. Influenza A and B negative. 08/21/18 was last infusion. Rash right lower anterior tibia 15 cm without lymphangitic streak. Complex Multi-Symp Course/Dx Course Of Treatment: A 28 y/o female, accompanied by her Alfredo, presents to [facility] with a chief complaint of a headache since the night of . CXR impression: No active cardiopulmonary disease is noted. Influenza A and B negative. Upon re-eval there is a rash right lower anterior tibia 15 cm without lymphangitic streak. During the physical exam the rash was 12 cm. - Diagnoses Provider Diagnoses: Cellulitis, Crohn's disease Discharge - Discharge Plan Referrals: Phong Monreal MD [Primary Care Provider] - - Attestation Statements Document Initiated by Scribe: Yes Documenting Scribe: Alphonso Yin Provider For Whom Scribpeter is Documenting (Include Credential): Dr. Nohemy Rosales MD Scribe Attestation: Alphonso Laureano, scribed for Dr. Nohemy Rosales MD on 08/28/18 at 2132.
[2018-08-28] MEDS ORDERED: Ondansetron ODT TAB* 4 MG PO ONE (16:52)
[2018-08-28] MEDS ORDERED: Acetaminophen TAB* 325 MG PO ONE (16:52)
[2018-08-28] MEDS ORDERED: NS 0.9% 1000 ML*IV.FLUID IV ONE (16:52)
[2018-08-28] MEDS ORDERED: ceFAZolin 1 GM ADVAN(*) 1 GM in NS 0.9% 50 ML* 50 ML IVPB ONE (16:52)
[2018-08-28] MEDS ORDERED: Lidocaine 2.5%/Prilocain 2.5%* 5 GM TUBE TOPICAL ONE (16:52)
[2018-08-28 18:43] LABS: ABS Basophils 0 10^3/ul (0-0.2); ABS Eosinophils 0 10^3/ul (0-0.6); ABS Monocytes 0.5 10^3/ul (0-0.8); ABS Nucleated RBC 0 10^3/ul; Eosinophil % 0.1 %; Hematocrit 44 % (35-47); Hemoglobin 15.1 g/dl (12.0-16.0); Lymphocyte % 11.3 %; Mean Corpuscular HGB Conc 34 g/dl (31-36); Mean Corpuscular Hemoglobin 30 pg (27-31); Mean Corpuscular Volume 86 fL (80-97); Mean Platelet Volume 7.2 fL (7.4-10.4); Nucleated Red Blood Cells % 0.1; Platelet Count 239 10^3/ul (150-450); Red Blood Count 5.12 10^6/ul (4.00-5.40); Red Cell Distribution Width 13 % (10.5-15); White Blood Count 8.5 10^3/ul (3.5-10.8)
[2018-08-28 19:03] LABS: Activated Partial Thrombo Time 30.2 seconds (26.0-36.3); INR 0.99 (0.77-1.02)
[2018-08-28 19:07] LABS: ALT 19 U/L (7-52); AST 13 U/L (13-39); Albumin 4.3 g/dL (3.2-5.2); Albumin/Globulin Ratio 1.3 (1-3); Alkaline Phosphatase 61 U/L (34-104); Anion Gap 8 mmol/L (2-11); BUN/Creatinine Ratio 15.8 (8-20); Blood Urea Nitrogen 9 mg/dL (6-24); CO2 Carbon Dioxide 24 mmol/L (22-32); Calcium 9.4 mg/dL (8.6-10.3); Chloride 102 mmol/L (101-111); Creatine Kinase 45 U/L (10-223); EGFR Non-African American 127.2 (>60); Globulin 3.2 g/dL (2-4); Glucose 92 mg/dL (70-100); HCG Pregnancy < 0.60 mIU/mL; Potassium 3.6 mmol/L (3.5-5.0); Sodium 134 mmol/L (135-145); Total Protein 7.5 g/dL (6.4-8.9)
[2018-08-28 19:44] LABS: Erythrocyte Sed Rate 18 mm/Hr (0-14)
[2018-08-28 20:21] LABS: Urine Appearance Clear; Urine Bacteria Absent (Absent); Urine Bilirubin Negative (Negative); Urine Blood 1+ (Negative); Urine Color Straw; Urine Glucose Negative (Negative); Urine Ketones 1+ (Negative); Urine Nitrite Negative (Negative); Urine Protein Negative (Negative); Urine Red Blood Cell Trace(0-2/hpf) (Absent); Urine Specific Gravity 1.005 (1.010-1.030); Urine Urobilinogen Negative (Negative); Urine White Blood Cell Absent (Absent)
[2018-08-28 21:55] VITALS: BP 121/76
== END 2018-08-28 21:55 | disposition home or self-care (01) ==
LOC: ED 16:26
DX: L03.115 Cellulitis of right lower limb (principal); K50.90 Crohn's disease, unspecified, without complications; R51 Headache; R11.0 Nausea; R50.9 Fever, unspecified; J45.909 Unspecified asthma, uncomplicated; K21.9 Gastro-esophageal reflux disease without esophagitis; Z91.048 Other nonmedicinal substance allergy status; Z87.891 Personal history of nicotine dependence
CPT/HCPCS: 36415; 71045; 80053; 81003; 81015; 82550; 83605; 84484; 84702; 85025; 85610; 85652; 85730; 86140; 86618; 87040; 96361; 96374; 99283; A9270-GY; J0690

== ENCOUNTER 2018-12-14 19:25 | Emergency (ER) | payer BC, OTHER ==
[2018-12-14 21:01] LABS: Rapid HIV 1 Nonreactive (Nonreactive)
[2018-12-14 22:25] VITALS: BP 117/61
--- NOTE | 2018-12-15 01:48 | ED ---
- HPI Summary HPI Summary: Patient is a 28-year-old female who presents emergency department for a needlestick to her left thumb that occurred prior to arrival. 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. Patient states she gave a subcutaneous insulin injection to the patient and when she removed the needle patient moved and needle went into left thumb. Patient denies past medical history. Immunizations are up-to-date. Source patient's labs ordered by attending. Symptoms are moderate in severity. Patient notes she cleaned wound with soap and water. No current modifying factors. - History of Current Complaint Chief Complaint: EDExposureBodyFluid Stated Complaint: NEEDLE STICK PER PT Time Seen by Provider: 12/14/18 21:01 PMH/Surg Hx/FS Hx/Imm Hx Previously Healthy: Yes Endocrine/Hematology History: Reports: Hx Anemia - RELATED TO B12 Denies: Hx Diabetes, Hx Thyroid Disease Cardiovascular History: Denies: Hx Congestive Heart Failure, Hx Hypertension Respiratory History: Reports: Hx Asthma - PRN INHALER Denies: Hx Chronic Obstructive Pulmonary Disease (COPD) GI History: Reports: Hx Crohn's Disease, Hx Gastroesophageal Reflux Disease - ON MEDICATION FOR, Other GI Disorders - CROHNS Denies: Hx Ulcer History: Denies: Hx Dialysis, Hx Renal Disease Musculoskeletal History: Reports: Hx Arthritis - BACK, Other Musculoskeletal History - SPINAL STENOSIS, 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 COLONOSCOPY, POWERPORT INSERTION 12/11. WISDOM TEETH WITH SEDATION Hx Anesthesia Reactions: No - Immunization History Date of Influenza Vaccine: fall 2017 Infectious Disease History: No Infectious Disease History: Denies: Hx Hepatitis, Hx Human Immunodeficiency Virus (HIV), History Other Infectious Disease, Traveled Outside the [place] in Last 30 Days - Family History Known Family History: Positive: Other - Negative for blood clots, aunt and uncle positive for Crohn's disease - Social History Occupation: Employed Full-time Lives: With Family Alcohol Use: Occasionally Alcohol Amount: 2 Hx Substance Use: No Substance Use Type: Reports: None Hx Tobacco Use: Yes Smoking Status (MU): Former Smoker Type: Cigarettes Amount Used/How Often: 1 PPD X 4 YEARS Length of Time of Smoking/Using Tobacco: appx 5yrs Have You Smoked in the Last Year: No Review of Systems Positive: Other - needle stick left thumb All Other Systems Reviewed And Are Negative: Yes Physical Exam Triage Information Reviewed: Yes Vital Signs On Initial Exam: Initial Vitals Temp Pulse Resp BP Pulse Ox 98.7 F 85 16 123/85 95 12/14/18 19:30 12/14/18 19:30 12/14/18 19:30 12/14/18 19:30 12/14/18 19:30 Vital Signs Reviewed: Yes Appearance: Positive: Well-Appearing - Pt. sitting on chair in NAD. SO present. Skin: Positive: Warm, Dry, Other - small puncture wound to left thumb pad Head/Face: Positive: Normal Head/Face Inspection Eyes: Positive: Normal, EOMI Neck: Positive: Supple Neurological: Positive: Normal, CN Intact II-III Psychiatric: Positive: Affect/Mood Appropriate Diagnostics - Vital Signs Vital Signs Temp Pulse Resp BP Pulse Ox 12/14/18 22:20 98.1 F 78 16 117/61 98 12/14/18 19:30 98.7 F 85 16 123/85 95 - Laboratory Lab Results: Lab Results 12/14/18 12/14/18 Range/Units 20:23 20:23 Beta HCG, Quant < 0.60 mIU/mL HIV 1&2 Antibody Rapid Nonreactive (Nonreactive) Lab Statement: Any lab studies that have been ordered have been reviewed, and results considered in the medical decision making process. Needlestick Course/Dx - Course Course Of Treatment: Patient presenting to the ER after needle stick injury. According to patient source patient's labs have been drawn and rapid HIV is negative. Protocol blood work was ordered for patient. Patient offered prophylactic treatment which she declines at this time. Will follow-up with employee health for further testing and treatment if needed. Patient understands and agrees with plan. - Diagnoses Provider Diagnoses: Needle stick injury Discharge - Sign-Out/Discharge Documenting (check all that apply): Patient Departure Patient Received Moderate/Deep Sedation with Procedure: No - Discharge Plan Condition: Good Disposition: HOME Patient Education Materials: Needle Stick Injuries (ED) Referrals: Jacob Sanchez MD [Medical Doctor] - Phong Monreal MD [Primary Care Provider] - Additional Instructions: Follow up with employee health - Billing Disposition and Condition Condition: GOOD Disposition: Home
[2018-12-16 08:56] LABS: Hepatitis B Surface Antigen Nonreactive (Nonreactive)
[2018-12-16 09:18] LABS: Hepatitis B Surface AB Immune (Immune)
[2018-12-16 09:23] LABS: Hepatitis C Antibody Nonreactive (Nonreactive)
== END 2018-12-14 22:20 | disposition home or self-care (01) ==
LOC: ED 19:25
DX: S61.032A Puncture wound without foreign body of left thumb without damage to nail, initial encounter (principal); W26.8XXA Contact with other sharp object(s), not elsewhere classified, initial encounter; Y93.F9 Activity, other caregiving; Y92.89 Other specified places as the place of occurrence of the external cause; Y99.0 Civilian activity done for income or pay; D64.9 Anemia, unspecified; J45.909 Unspecified asthma, uncomplicated; K21.9 Gastro-esophageal reflux disease without esophagitis; K50.90 Crohn's disease, unspecified, without complications; M19.90 Unspecified osteoarthritis, unspecified site; M48.061 Spinal stenosis, lumbar region without neurogenic claudication; F41.9 Anxiety disorder, unspecified; F32.9 Major depressive disorder, single episode, unspecified; Z87.891 Personal history of nicotine dependence; Z79.899 Other long term (current) drug therapy
CPT/HCPCS: 36415; 84702; 86703; 86706; 86803; 87340; 99282

== ENCOUNTER 2019-01-17 01:05 | Emergency (ER) | payer BC ==
--- OUTSIDE RECORDS SUMMARY | 2019-01-17 01:13 | XMS REPORT | Continuity of Care Document ---
:1990 External Reference #:[id number] Author Name MicheletDali jaime Care Team Providers Name Role Phone Phong Monreal M.D. Primary Care Physician Unavailable Payers Date Identification Numbers Payment Provider Subscriber Policy Number: [id number] [facility] Maggie Klein PayID: [id number] [address] [address] [place] nino [address] Advance Directives Description No Information Available Problems Active Problems Provider Date Crohn's disease Keke Ovalle CNM Onset: 05/05/2018 Asthma Keke Ovalle CNM Onset: 05/05/2018 Family History Date Family Member(s) Observation Comments Father Unknown Mother Ovarian Tumors Mother Breast Tumors Mother Thyroid Disease First Brother A&W Second Brother A&W Third Brother A&W First Sister A&W Second Sister A&W Paternal Grandfather due to Unknown Causes () Paternal Grandmother A&W Maternal Grandfather Unknown Maternal Grandmother Unknown Uncle Crohn's Disease Aunt Crohn's Disease Social History Type Date Description Comments Sex Unknown Education Highest level completed, Associates Degree Marital Status Lives With Diet Paleo Diet for Crohn's Disease 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 Cigarette Use Does Not Smoke Cigarettes ETOH Use Occasionally consumes alcohol Recreational Drug Use Denies Drug Use Tobacco Use Start: Unknown Patient has never smoked Smoking Status Reviewed: 01/02/19 Patient has never smoked Seat Belt/Car Seat Always uses seat belt Currently Active Patient is currently sexually active Contraceptive Methods None STD's Chlamydia Allergies, Adverse Reactions, Alerts Description No Known Drug Allergies Medications Active Medications SIG Qnty Indications Ordering Provider Date Protonix 1 by mouth daily Unknown 40mg Tablets DR Shah one by mouth at Unknown 10mg bedtime Tablets Ventolin HFA 1-2 inhalations Unknown every 4-6 hours, 108(90Base) mcg/Act prn. Aerosol Trazodone HCL 1 by mouth Q hs prn Unknown 100mg Tablets Remicade 900 mg Q 6 weeks Unknown 100mg Solution Rec Zyrtec Allergy one by mouth daily Unknown 10mg Capsules Vitamin D one by mouth daily Unknown (Ergocalciferol) 2000Unit Capsules Turmeric 2 capsules daily Unknown 450mg Capsules Robaxin 1/2 tablet Q hs prn Unknown 500mg Tablets Kyleena placed 01/02/19 Unknown Medications Administered in Office Medication SIG Qnty Indications Ordering Provider Date PT SCRN Tbco Id as Non User Azucena Huntley MD 12/18/2018 Injection PT SCRN Tbco Id as Non User Keke Ovalle CNM 05/02/2018 Injection Immunizations Description No Information Available Vital Signs Date Vital Result Comment 01/02/2019 10:05am BP Systolic 128 mmHg BP Diastolic 76 mmHg Height 60 inches 5'0" Weight 190.00 lb BMI (Body Mass Index) 37.1 kg/m2 Last Menstrual Period [id number] 0 Parity 0 12/18/2018 11:44am BP Systolic 124 mmHg BP Diastolic 82 mmHg Height 60 inches 5'0" Weight 191.00 lb BMI (Body Mass Index) 37.3 kg/m2 Last Menstrual Period [id number] 0 Parity 0 05/02/2018 3:01pm BP Systolic 112 mmHg BP Diastolic 70 mmHg Height 60 inches 5'0" Weight 198.00 lb BMI (Body Mass Index) 38.7 kg/m2 Last Menstrual Period [id number] 0 Parity 0 Results Test Date Facility Test Result H/L Range Note Laboratory test 05/17/2018 [facility] TSH (Thyroid 1.54 N 0.34 -5.60 [place] [address] Stimulating mcIU/mL [phone] Horm) Free T4 0.91 ng/dL N 0.61-1.12 Procedures Description No Information Available Encounters Type Date Location Provider Dx Diagnosis Office Visit 12/18/2018 [facility] Azucena Huntley, Z30.09 Encounter for oth 12:00p general coun and advice on contraception Office Visit 05/02/2018 [facility] Kekeshashi Ovalle, Z01.419 Encntr for gamb cutter exam 3:20p CNM (general) (routine) w/o abn findings Z12.4 Encounter for screening for malignant neoplasm of cervix Plan of Treatment 12/18/2018 - Azucena Huntley MDZ30.09 Encounter for other general counseling and advice on contracComments:Discussed IUDs including risks of perforation, , expulsion, pain with insertion and changesin menstruation often including several months of daily light bleeding or spotting and then motion picture projectionist periods and occassionally absence of periods.Discussed various types of IUDs: nonhormonal vs LN-IUDs and different doses. Is considering Paragard vs Kyleena.Continue your current method of control. If you have unprotected intercourse in the 2 weeks prior to our appointment, your IUD cannot be placed that day.Follow up as scheduled for your appointment to place the IUD.Take Motrin (Ibuprofen) 600 or 800mg prior to your appointment if desired.
--- OUTSIDE RECORDS SUMMARY | 2019-01-17 01:13 | XMS REPORT | Continuity of Care Document ---
:1990 External Reference #:[id number] Author Name MicheletDali jaime Care Team Providers Name Role Phone Phong Monreal M.D. 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 Cigarette Use Does Not Smoke Cigarettes ETOH Use Occasionally consumes alcohol Recreational Drug Use Denies Drug Use Tobacco Use Start: Unknown Patient has never smoked Smoking Status Reviewed: 12/18/18 Patient has never smoked Seat Belt/Car Seat [...] tablet Q hs prn Unknown 500mg Tablets Medications Administered in Office Medication SIG Qnty Indications Ordering Provider Date PT SCRN Tbco Id as Non User Keke Ovalle CNM 05/02/2018 Injection Immunizations Description No Information Available Vital Signs Date Vital Result Comment 12/18/2018 11:44am BP Systolic 124 mmHg BP Diastolic 82 mmHg Height 60 inches 5'0" Weight 191.00 lb BMI (Body Mass Index) 37.3 kg/m2 Last Menstrual Period [id number] 0 Parity 0 05/02/2018 3:01pm BP Systolic 112 mmHg BP Diastolic 70 mmHg Height 60 inches 5'0" Weight 198.00 lb BMI (Body Mass Index) 38.7 kg/m2 Last Menstrual Period [id number] 0 Parity 0 Results Test Date Facility Test Result H/L Range Note Laboratory test 05/17/2018 [facility] TSH (Thyroid 1.54 N 0.34 -5.60 [place] [address] Stimulating mcIU/mL [phone] Horm) Free T4 0.91 ng/dL N 0.61-1.12 Procedures Description No Information Available Encounters Type Date Location Provider Dx Diagnosis Office Visit 05/02/2018 [facility] Office Keke Ovalle, Z01.419 Encntr for debit agent exam 3:20p CNM (general) (routine) w/o abn findings Z12.4 Encounter for screening for malignant neoplasm of cervix Plan of Treatment No Information Available
[2019-01-17] MEDS ORDERED: NS 0.9% 1000 ML** 2,000 ML IV ONE (01:22)
[2019-01-17] MEDS ORDERED: Morphine 4 MG/ML VIAL (1 ml) 4 MG/ML VIAL IV ONE ×2 (01:23→08:07)
[2019-01-17 01:47] LABS: Hematocrit 44 % (35-47); Hemoglobin 14.5 g/dL (12.0-16.0); Mean Corpuscular HGB Conc 33 g/dL (31-36); Mean Corpuscular Hemoglobin 28 pg (27-31); Mean Corpuscular Volume 84 fL (80-97); Red Blood Count 5.19 10^6 /uL (3.70-4.87); Red Cell Distribution Width 14 % (10.5-15); White Blood Count 8.6 10^3/uL (3.5-10.8)
--- NOTE | 2019-01-17 01:52 | ED ---
Abdominal Pain/Female - HPI Summary HPI Summary: Pt is a 28 y/o F presenting to the ED with a chief complaint of abd pain in her lower abd diffusely. It first came on around 1600 and it has been getting worse since then, radiating into her back. She has dx of Crohns disease which she has had multiple complications with, but has not experienced pain like this. She notes that she just got an IUD put in. She reports some associated nausea and diarrhea. She denies urinary sx, hematuria, or vomiting. - History of Current Complaint Chief Complaint: EDAbdPain Stated Complaint: ABD/BACK PAIN PER PT Time Seen by Provider: 01/17/19 01:17 Hx Obtained From: Patient Hx Last Menstrual Period: 08/25/18 Onset/Duration: Sudden Onset, Lasting Hours, Still Present Timing: Constant Severity Initially: Moderate Severity Currently: Severe Pain Intensity: 10 Pain Scale Used: 0-10 Numeric Location: Diffuse Radiates: Yes Radiates to: Back Character: Cramping Aggravating Factor(s): Nothing Alleviating Factor(s): Nothing Associated Signs and Symptoms: Positive: Nausea. Negative: Urinary Symptoms, Vomiting, Diarrhea Allergies/Adverse Reactions: Allergies Allergy/AdvReac Type Severity Reaction Status Date / Time Adhesive Tape Allergy skin Verified 01/17/19 01:54 irritation, RASH SEASONAL, CATS, DOGS, MOLD Allergy Mild Congestion Uncoded 01/17/19 01:54 PMH/Surg Hx/FS Hx/Imm Hx Previously Healthy: No Endocrine/Hematology History: Reports: Hx Anemia - RELATED TO B12 Denies: Hx Diabetes, Hx Thyroid Disease Cardiovascular History: Denies: Hx Congestive Heart Failure, Hx Hypertension Respiratory History: Reports: Hx Asthma - PRN INHALER Denies: Hx Chronic Obstructive Pulmonary Disease (COPD) GI History: Reports: Hx Crohn's Disease, Hx Gastroesophageal Reflux Disease - ON MEDICATION FOR, Other GI Disorders - CROHNS Denies: Hx Ulcer History: Denies: Hx Dialysis, Hx Renal Disease Musculoskeletal History: Reports: Hx Arthritis - BACK, Other Musculoskeletal History - SPINAL STENOSIS, 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 COLONOSCOPY, POWERPORT INSERTION 12/11. WISDOM TEETH WITH SEDATION Hx Anesthesia Reactions: No - Immunization History Date of Influenza Vaccine: fall 2017 Infectious Disease History: No Infectious Disease History: Denies: Hx Hepatitis, Hx Human Immunodeficiency Virus (HIV), History Other Infectious Disease, Traveled Outside the [place] in Last 30 Days - Family History Known Family History: Positive: Other - Negative for blood clots, aunt and uncle positive for Crohn's disease - Social History Alcohol Use: Occasionally Alcohol Amount: 2 Hx Substance Use: No Substance Use Type: Reports: None Hx Tobacco Use: Yes Smoking Status (MU): Former Smoker Type: Cigarettes Amount Used/How Often: 1 PPD X 4 YEARS Length of Time of Smoking/Using Tobacco: appx 5yrs Have You Smoked in the Last Year: No Review of Systems Positive: Abdominal Pain, Diarrhea, Nausea. Negative: Vomiting Positive: no symptoms reported. Negative: hematuria All Other Systems Reviewed And Are Negative: Yes Physical Exam - Summary Physical Exam Summary: Appearance: Obese middle aged woman who appears to be in pain but nontoxic. Skin: Warm, dry, no obvious rash Eyes: sclera anicteric, no conjunctival pallor ENT: mucous membranes moist, pharynx appears normal Neck: Supple, nontender Respiratory: Clear to auscultation, no signs of respiratory distress Cardiovascular: Normal S1, S2. No murmurs. Normal distal pulses in tibial and radial bilaterally. Abdomen: Soft, marked focal tenderness in the RUQ just below R mid-costal margin with some guarding. There is some mild diffuse tenderness in the rest of the upper abd but no peritoneal signs. Normal active bowel sounds present Musculoskeletal: Normal, Strength/ROM Intact Neurological: A&Ox3, awake and alert, mentation is normal, speech is fluent and appropriate Psychiatric: affect is normal, does not appear anxious or depressed Triage Information Reviewed: Yes Vital Signs On Initial Exam: Initial Vitals Temp Pulse Resp BP Pulse Ox 99.1 F 76 18 124/84 98 01/17/19 01:06 01/17/19 01:06 01/17/19 01:06 01/17/19 01:06 01/17/19 01:06 Vital Signs Reviewed: Yes Diagnostics - Vital Signs Vital Signs Temp Pulse Resp BP Pulse Ox 01/17/19 01:41 16 01/17/19 01:06 99.1 F 76 18 124/84 98 - Laboratory Result Diagrams: 01/17/19 01:38 01/17/19 01:38 Lab Statement: Any lab studies that have been ordered have been reviewed, and results considered in the medical decision making process. - CT CT abd/pelv CT Interpretation Completed By: Radiologist Summary of CT Findings: No acute findings. No evidence of calcified gallstone. No CT evidence for acute cholecystitis. No hydronephrosis or nephrolithiasis. IUD appears to be eccentrically placed in the R side of the uterus. One of the components made be in the myometrium. Prior surgery in which there is a row of ari involving the cecum. No bowel obstruction. No abnormal bowel wall thickening. No mesenteric inflammatory changes. ED physician has reviewed this report. Abdominal Pain Fem Course/Dx - Course Course Of Treatment: Pt is a 28 y/o F presenting to the ED with a chief complaint of abd pain in her lower abd diffusely. It first came on around 1600 and it has been getting worse since then, radiating into her back. She reports some associated nausea and diarrhea. She denies urinary sx, hematuria, or vomiting. Physical exam shows marked focal tenderness in the RUQ just below R mid-costal margin with some guarding. There is some mild diffuse tenderness in the rest of the upper abd but no peritoneal signs. CT abd/pelv shows: No acute findings. No evidence of calcified gallstone. No CT evidence for acute cholecystitis. No hydronephrosis or nephrolithiasis. IUD appears to be eccentrically placed in the R side of the uterus. One of the components made be in the myometrium. Prior surgery in which there is a row of ari involving the cecum. No bowel obstruction. No abnormal bowel wall thickening. No mesenteric inflammatory changes. The pt will be signed out to Dr. Rosales pending the results of her US gallbladder. Otherwise, I believe this is a flare up of the pt's Crohn's disease. - Diagnoses Provider Diagnoses: Abdominal pain, IUD (intrauterine device) in place, Bicornuate uterus, Crohns disease Discharge - Sign-Out/Discharge Documenting (check all that apply): Patient Departure Patient Received Moderate/Deep Sedation with Procedure: No - Discharge Plan Condition: Good Disposition: HOME Prescriptions: Ondansetron ODT TAB* [Zofran 4 MG Odt TAB*] 4 mg PO Q6H PRN #20 tab.odt PRN Reason: Nausea oxyCODONE/Acetamin 5/325 MG* [Percocet 5/325 TAB*] 2 tab PO Q4H PRN #15 tab MDD 6 PRN Reason: Pain predniSONE [Prednisone 20 MG TAB] 40 mg PO DAILY #20 tablet Patient Education Materials: Intrauterine Device (DC), Crohn Disease (ED) Referrals: Curtis James MD [Medical Doctor] - 2 Days (2) Azucena Huntley MD [Medical Doctor] - 7 Days Phong Monreal MD [Primary Care Provider] - 2 Days (2) Additional Instructions: The tests we ran tonight did not show an exact cause for your pain, but for now I am going to treat this as a flare of your Crohn's disease with prednisone and pain killers. Close followup with Dr. James is important to see how you do on this medication and adjust treatment as needed. Your gallbladder ultrasound did not show any gallstones, but with your continued pain, you may need more studies. The transvaginal ultrasound shows that you have a bicornuate uterus. And the IUD is up in the right side of the uterus. We talked to Dr. Gonzalez about this, and she states this is okay at this time, and she will make Dr. Huntley aware of this. In the emergency Department you were given morphine 4 mg twice for pain, and Percocet 12/3251 tablets. Prescriptions for the prednisone and Percocet are waiting at your pharmacy. Please be sure that you have definite follow-up with Dr. James or Dr. Monreal as soon as possible about your right upper quadrant pain. Return to the ER if you have any new or worsening symptoms. - Billing Disposition and Condition Condition: GOOD Disposition: Home - Attestation Statements Document Initiated by Scribe: Yes Documenting Scribe: Jo-Ann Valencia Provider For Whom David is Documenting (Include Credential): Carl Hilliard MD. Scribe Attestation: I, Jo-Ann Valencia, scribed for Carl Hilliard MD. on 01/21/19 at 1842. Scribe Documentation Reviewed: Yes Provider Attestation: The documentation as recorded by the scribe, Jo-Ann Valencia accurately reflects the service I personally performed and the decisions made by me, Carl Hilliard MD. Status of Scribe Document: Viewed
[2019-01-17 02:03] LABS: ALT 14 U/L (7-52); AST 13 U/L (13-39); Albumin 3.8 g/dL (3.2-5.2); Albumin/Globulin Ratio 1.3 (1-3); Alkaline Phosphatase 68 U/L (34-104); Anion Gap 8 mmol/L (2-11); BUN/Creatinine Ratio 12.5 (8-20); Blood Urea Nitrogen 9 mg/dL (6-24); CO2 Carbon Dioxide 23 mmol/L (22-32); Calcium 9.3 mg/dL (8.6-10.3); Chloride 105 mmol/L (101-111); EGFR African American 117.6 (>60); EGFR Non-African American 97.2 (>60); Globulin 2.9 g/dL (2-4); Glucose 98 mg/dL (70-100); Potassium 3.8 mmol/L (3.5-5.0); Sodium 136 mmol/L (135-145); Total Protein 6.7 g/dL (6.4-8.9)
[2019-01-17 02:10] LABS: HCG Pregnancy < 0.60 mIU/mL
[2019-01-17 02:20] LABS: ABS Basophils 0.1 10^3/ul (0-0.2); ABS Eosinophils 0.3 10^3/ul (0-0.6); ABS Lymphocytes 2.6 10^3/ul (1.0-4.8); ABS Monocytes 0.7 10^3/ul (0-0.8); Eosinophil % 3.9 %; Nucleated Red Blood Cells % 0.1; Platelet Count Platelets clumped. 10^3/uL (150-450)
[2019-01-17 02:33] LABS: Urine Appearance Clear; Urine Bilirubin Negative (Negative); Urine Blood Negative (Negative); Urine Color Colorless; Urine Glucose Negative (Negative); Urine Ketones Negative (Negative); Urine Nitrite Negative (Negative); Urine Protein Negative (Negative); Urine Specific Gravity 1.004 (1.010-1.030); Urine Urobilinogen Negative (Negative)
[2019-01-17] MEDS ORDERED: Iohexol 300* (CONTRAST) 10 ML SDV IV ONE (02:51)
--- NOTE | 2019-01-17 08:03 | ED ---
Progress - Progress Note Progress Note: RECEIVING SIGN-OUT FROM DR. HILLIARD AT SHIFT CHANGE (07:00) ON 01/17/2019 PENDING GALLBLADDER US. HPI: Pt is a 28 y/o F with Pert PMHx: Crohn's presenting to ED with RUQ pain onset yesterday and worsening. She has a new IUD (placed 01/02/[address] Huntley) and thought the cramping was from that initially because the abd pain first started as low abdominal cramping. The pain radiated to her back. Associated sx : mild diarrhea. Denies fever, vomiting, bloody stool. She's taken approx 3-4 doses of Entyvio, every [address] James, GI. She denies trauma, hx: kidney stones. Surgical history: emergency bowel resection (2008 - removed 8 inches of small bowel), ileostomy reversed, incisional hernia at ileostomy location. PCP is Dr. Monreal. Vitals at bedside: HR: 86 bpm, BP: 109/74, O2 sat: 98% Physical Exam: Appearance: Ill-appearing, moderate pain distress, obese Skin: Warm, color reflects adequate perfusion, dry Head: Normal Head/Face inspection, atraumatic Eyes: Conjunctiva clear ENT: Normal inspection Neck: Supple, no nodes, no JVD Respiratory: Lungs clear, normal breath sounds, no respiratory distress Cardio: RRR, No murmur, pulses normal, brisk capillary refill Abdomen: Soft, tenderness in RUQ, no guarding, no rebound, no CVAT Bowel sounds: Present Musculoskeletal: Strength Intact/ROM intact, no calf tenderness, no edema. Psychological: Normal Neuro: Alert, muscle tone normal, no focal deficit Consult: 0858: SHERYL Stevenson Recommends trans-vag US to review placement of IUD definitively, given findings on CT. 1133: SHERYL Stevenson Reviewing Trans-vag US, feels it is OK, will notify Dr. Huntley of the probable bicornuate uterus. - Results/Orders Results/Orders: CT abd/pelvis results were available prior to US GB ordered, showing no acute findings in the abdomen, and IUD in place, eccentrically placed on the right with one component possibly in the myometrium. US GALL BLADDER as read by radiologist IMPRESSION: No evidence of cholelithiasis or biliary duct dilatation although the patient is tender when imaging the gallbladder. Hepatic steatosis. ED provider has reviewed this report. US TRANS-VAGINAL as read by radiologist: IMPRESSION: There is suggestion of a bicornuate uterus with IUD in place however it appears to be in the R horn of bicornuate uterus. ED provider has reviewed this report. (Note impression of this report differs slightly from reading above, and reading above makes sense for the findings. Re-Evaluation - Re-Evaluation 1 Re-Evaluation Time: 08:27 Change: Unchanged Comment: Discussing CT results and GB US results with patient. 2 Re-Evaluation Time: 09:07 Change: Improved Comment: Her pain is controlled with morphine. Discussed trans-vag US and she is agreeable. Patient given copy of her studies. 3 Re-Evaluation Time: 12:17 Change: Improved Comment: Discussing discharge plans with patient, she was given a copy of trans- vag US results, and possible bicornuate uterus and IUD placement discussed. She is agreeable to discharge. Course/Dx - Course Course Of Treatment: RECEIVING SIGN-OUT FROM DR. HILLIARD AT SHIFT CHANGE (07:00) ON 01/17/2019 PENDING GALLBLADDER US. US GALL BLADDER shows "No evidence of cholelithiasis or biliary duct dilatation although the patient is tender when imaging the gallbladder. Hepatic steatosis.". Review of CT abd/pelvis regarding IUD placement reveals eccentrically placed IUD to the right with one component possibly in myometrium. Transvaginal ultrasound ordered to fully evaluate the IUD placement. US TRANS-VAGINAL shows "There is suggestion of a bicornuate uterus with IUD in place, however the distal portion of the IUD, appears to be in the R horn of bicornuate uterus.". Consulted with Dr. Gonzalez, OB[employer], about US results, felt it was OK to have patient f/u out-patient. Will discharge patient home with Percocet and Prednisone, and to f/u with Dr. James , GI for RUQ pain with possible HIDA scan, and Dr. Huntley, OB[employer]ER, for further evaluation of possible bicornuate uterus and IUD placement. - Diagnoses Provider Diagnoses: Abdominal pain, IUD (intrauterine device) in place, Bicornuate uterus, Crohns disease Discharge - Sign-Out/Discharge Documenting (check all that apply): Patient Departure - D/C, Receiving Sign-Out Receiving patient FROM: Carl Hilliard - 01/17/19, 0700 pending gallbladder US Patient Received Moderate/Deep Sedation with Procedure: No - Discharge Plan Condition: Good Disposition: HOME Prescriptions: Ondansetron ODT TAB* [Zofran 4 MG Odt TAB*] 4 mg PO Q6H PRN #20 tab.odt PRN Reason: Nausea oxyCODONE/Acetamin 5/325 MG* [Percocet 5/325 TAB*] 2 tab PO Q4H PRN #15 tab MDD 6 PRN Reason: Pain predniSONE [Prednisone 20 MG TAB] 40 mg PO DAILY #20 tablet Patient Education Materials: Intrauterine Device (DC), Crohn Disease (ED) Referrals: Curtis James MD [Medical Doctor] - 2 Days (2) Azucena Huntley MD [Medical Doctor] - 7 Days Phong Monreal MD [Primary Care Provider] - 2 Days (2) Additional Instructions: The tests we ran tonight did not show an exact cause for your pain, but for now I am going to treat this as a flare of your Crohn's disease with prednisone and pain killers. Close followup with Dr. James is important to see how you do on this medication and adjust treatment as needed. Your gallbladder ultrasound did not show any gallstones, but with your continued pain, you may need more studies. The transvaginal ultrasound shows that you have a bicornuate uterus. And the IUD is up in the right side of the uterus. We talked to Dr. Gonzalez about this, and she states this is okay at this time, and she will make Dr. Huntley aware of this. In the emergency Department you were given morphine 4 mg twice for pain, and Percocet 12/3251 tablets. Prescriptions for the prednisone and Percocet are waiting at your pharmacy. Please be sure that you have definite follow-up with Dr. James or Dr. Monreal as soon as possible about your right upper quadrant pain. Return to the ER if you have any new or worsening symptoms. - Billing Disposition and Condition Condition: GOOD Disposition: Home - Attestation Statements Document Initiated by Scribe: Yes Documenting Scribe: SooYoung VanDeMark Provider For Whom Scribe is Documenting (Include Credential): Dr. Nohemy Rosales MD Scribe Attestation: Sharron Laureano, scribed for Dr. Nohemy Rosales MD on 01/20/19 at 2228. Scribe Documentation Reviewed: Yes Provider Attestation: The documentation as recorded by the scribe, Sharron Iqbal accurately reflects the service I personally performed and the decisions made by me, Dr. Nohemy Rosales MD Status of Scribe Document: Viewed
[2019-01-17] MEDS ORDERED: oxyCODONE/Acetamin 5/325 MG* TAB PO ONE (12:04)
[2019-01-17] MEDS ORDERED: Ondansetron INJ* 2 MG/ML VIAL IV ONE (12:19)
[2019-01-17 12:55] VITALS: BP 116/79
== END 2019-01-17 13:04 | disposition home or self-care (01) ==
LOC: ED 01:05
DX: R10.9 Unspecified abdominal pain (principal); Z97.5 Presence of (intrauterine) contraceptive device; Q51.3 Bicornate uterus; K76.0 Fatty (change of) liver, not elsewhere classified; J45.909 Unspecified asthma, uncomplicated; K50.90 Crohn's disease, unspecified, without complications; K21.9 Gastro-esophageal reflux disease without esophagitis; M19.90 Unspecified osteoarthritis, unspecified site; Z79.51 Long term (current) use of inhaled steroids; Z79.899 Other long term (current) drug therapy; Z87.891 Personal history of nicotine dependence
CPT/HCPCS: 36415; 74177; 76705; 76830; 80053; 81003; 83690; 84702; 85025; 96361; 96374; 96375; 99284; A9270-GY; J2270; J2405; Q9967

== ENCOUNTER 2019-11-18 13:16 | Emergency (ER) | payer BC ==
--- NOTE | 2019-11-18 13:33 | ED ---
HPI Chest Pain - HPI Summary HPI Summary: This patient is a 29 y/o female presenting to [facility] c/o right sided chest pain since 929 today. Patient describes chest pain on the right side radiating into her back and up to right shoulder. She states her chest discomfort is constant but it waxes and wanes in intensity. Her chest pain is aggravated with deep breaths. She notes feeling "winded" but not necessarily short of breath. Denies any associated nausea, profuse diaphoresis, swelling of legs. Patient reports she has bilateral leg pain but states it may be from being on her feet all day. Patient called her air moving technician, Dr. Osorio, and was advised to come to the ED. Patient reports on 10/01/19 she was admitted to the hospital for a Crohn's flare and on 10/03/19 during her hospital stay she developed chest pain. She states she was found to have bilateral pulmonary emboli. Patient is currently on Eliquis and has not missed any doses. Patient did not have hx of blood clots prior to this. No FHx of blood clots. PMHx includes Crohn's disease, GERD, arthritis, asthma. PSHx: bowel resection, ileostomy, ileostomy reversal, hernia repair, power port insertion. Patient admits to occasional alcohol but denies tobacco or drug use. NKDA. 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 Medications reviewed. Allergies noted. - History of Current Complaint Chief Complaint: EDChestWallPain Time Seen by Provider: 11/18/19 13:23 Hx Obtained From: Patient Hx Last Menstrual Period: 08/25/18 Onset/Duration: Started Hours Ago, Still Present Timing: Lasting Hours Current Severity: Moderate Pain Intensity: 5 Pain Scale Used: 0-10 Numeric Chest Pain Location: Right Anterior Chest Pain Radiates: Yes Chest Pain Radiates To:: Back, Shoulder - right Aggravating Factor(s): Deep Breaths Alleviating Factor(s): Nothing Associated Signs and Symptoms: Positive: Chest Pain, Shortness of Breath, Other : - POSITIVE: bilateral leg pain. Negative: Fever, Diaphoresis, Nausea, Edema - Allergy/Home Medications Allergies/Adverse Reactions: Allergies Allergy/AdvReac Type Severity Reaction Status Date / Time Adhesive Tape Allergy skin Verified 11/18/19 13:49 irritation, RASH SEASONAL, CATS, DOGS, MOLD Allergy Mild Congestion Uncoded 11/18/19 13:49 Home Medications: Home Medications Pantoprazole TAB * [Protonix TAB*] 40 mg PO DAILY 07/16/15 [History Confirmed ] Lidocaine/PRILOCAINE* [Emla*] 1 applic .SEE ORDER MONTHLY 09/28/17 [History Confirmed 11/18/19] Cholecalciferol (Vitamin D3) [Vitamin D3] 2,000 unit PO DAILY 10/18/17 [History Confirmed 11/18/19] Cetirizine* [ZyrTEC 10 MG TAB*] 10 mg PO DAILY 02/05/18 [History Confirmed 11/17] Turmeric Root Extract [Turmeric] 900 mg PO DAILY 04/10/18 [History Confirmed ] Cyanocobalamin TAB* [Vitamin B12 TAB*] 1,000 mcg PO DAILY 05/22/18 [History Confirmed 11/18/19] Ondansetron ODT TAB* [Zofran 4 MG Odt TAB*] 4 mg PO Q6H PRN #20 tab.odt [Rx Confirmed 11/18/19] Venlafaxine EXT RELEASE CAP* [Effexor Xr CAP*] 75 mg PO DAILY 02/26/19 [History Confirmed 11/18/19] Apixaban* [Eliquis*] 5 mg PO BID 10/20/19 [History Confirmed 11/18/19] Albuterol inh POWDER (NF) [Proair Respiclick] 1 puff INH BID PRN 10/22/19 [ History Confirmed 11/18/19] Acetaminophen [Tylenol Extra Strength] 2 tab PO Q8H PRN 10/23/19 [History Confirmed 11/18/19] Ustekinumab [Stelara] 45 mg SQ .[id number] 10/23/19 [History Confirmed 11/18/19] Ascorbic Acid TAB* [Vitamin C TAB*] 500 mg PO DAILY 11/18/19 [History Confirmed 11/18/19] Cranberry 400 mg PO DAILY 11/18/19 [History Confirmed 11/18/19] Ferrous Sulfate TAB* 325 mg PO DAILY 11/18/19 [History Confirmed 11/18/19] Montelukast Sodium TAB* [Singulair TAB*] 10 mg PO BEDTIME 11/18/19 [History Confirmed 11/18/19] Multivitamins/Minerals TAB* [Theragran/minerals TAB*] 1 tab PO DAILY 11/18/19 [ History Confirmed 11/18/19] Vitamin B Complex TAB* [B Complex-50*] 1 tab PO DAILY 11/18/19 [History Confirmed 11/18/19] PMH/Surg Hx/FS Hx/Imm Hx Endocrine/Hematology History: Reports: Hx Anemia - RELATED TO B12 Denies: Hx Diabetes, Hx Thyroid Disease Cardiovascular History: Denies: Hx Congestive Heart Failure, Hx Hypertension, Hx Pacemaker/ICD Respiratory History: Reports: Hx Asthma - PRN INHALER, Hx Pulmonary Embolism Denies: Hx Chronic Obstructive Pulmonary Disease (COPD) GI History: Reports: Hx Crohn's Disease, Hx Gastroesophageal Reflux Disease - ON MEDICATION FOR, Other GI Disorders - CROHNS Denies: Hx Ulcer History: Denies: Hx Dialysis, Hx Renal Disease Musculoskeletal History: Reports: Hx Arthritis - BACK, Other Musculoskeletal History - SPINAL STENOSIS, 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 COLONOSCOPY, POWERPORT INSERTION 12/11. 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 Alcohol Use: Occasionally Alcohol Amount: 2 Hx Substance Use: No Substance Use Type: Reports: None Hx Tobacco Use: Yes Smoking Status (MU): Former Smoker Type: Cigarettes Amount Used/How Often: 1 PPD X 4 YEARS Length of Time of Smoking/Using Tobacco: appx 5yrs Have You Smoked in the Last Year: No Review of Systems Negative: Fever, Skin Diaphoresis Positive: Chest Pain Positive: Shortness Of Breath - "winded" Negative: Nausea Musculoskeletal: Other - POSITIVE: bilateral leg pain Negative: Edema - in legs All Other Systems Reviewed And Are Negative: Yes Physical Exam - Summary Physical Exam Summary: Constitutional: Well-developed, Well-nourished, Alert. Appears mildly uncomfortable. Skin: Warm, Dry HENT: Normocephalic; Atraumatic Eyes: Conjunctiva normal Neck: Musculoskeletal ROM normal neck. (-) JVD, (-) Stridor, (-) Tracheal deviation Cardio: Rhythm regular, rate normal, Heart sounds normal; Intact distal pulses; The pedal pulses are 2+ and symmetric. Radial pulses are 2+ and symmetric. (-) Murmur Pulmonary/Chest wall: Effort normal. (-) Respiratory distress, (-) Wheezes, (-) Rales Abd: Soft, (-) tenderness, (-) Distension, (-) Guarding, (-) Rebound Musculoskeletal: (-) Edema Lymph: (-) Cervical adenopathy Neuro: Alert, Oriented x3 Psych: Mood and affect Normal Triage Information Reviewed: Yes Vital Signs On Initial Exam: Initial Vitals Temp Pulse Resp BP Pulse Ox 98.2 F 84 19 146/78 100 11/18/19 13:19 11/18/19 13:19 11/18/19 13:19 11/18/19 13:19 11/18/19 13:19 Vital Signs Reviewed: Yes Procedures - Sedation Patient Received Moderate/Deep Sedation with Procedure: No Diagnostics - Vital Signs Vital Signs Temp Pulse Resp BP Pulse Ox 11/18/19 13:19 98.2 F 84 19 146/78 100 - Laboratory Result Diagrams: 11/18/19 14:08 11/18/19 14:08 Lab Statement: Any lab studies that have been ordered have been reviewed, and results considered in the medical decision making process. - CT Chest CTA CT Interpretation Completed By: Radiologist Summary of CT Findings: IMPRESSION: No evidence of pulmonary embolus. No evidence of aortic dissection is noted. Dr. Landaverde has reviewed this report. - EKG 13:43 Cardiac Rate: NL - at 79 bpm EKG Rhythm: Sinus Rhythm Summary of EKG Findings: EKG at 1343 shows normal sinus rhythm at a rate of 79 bpm. Q wave in lead III. This EKG was interpreted and reviewed by ED physician. Re-Evaluation - Re-Evaluation First Eval Re-Evaluation Time: 15:42 Comment: Reviewed discharge instructions with patient. Chest Pain Course/Dx - Course Course Of Treatment: Patient is here for right-sided chest pain. Patient has a history of pulmonary embolism and is on Eliquis. Patient had an EKG performed which was grossly unremarkable. Patient had blood work performed which was grossly unremarkable as well. Patient had a CTA of her chest which showed no evidence of PE. Patient was discharged with PCP follow-up - Diagnoses Provider Diagnoses: Chest pain, Anemia Discharge ED - Sign-Out/Discharge Documenting (check all that apply): Patient Departure - Discharge home - Discharge Plan Condition: Stable Disposition: HOME Patient Education Materials: Chest Pain (ED), Anemia (ED) Referrals: Phong Monreal MD [Primary Care Provider] - Alexis Osorio MD [Medical Doctor] - Additional Instructions: Please follow up with Dr. Osorio in 1-3 days to get your blood level rechecked. PLEASE RETURN TO EMERGENCY DEPARTMENT IF YOU FEEL FAINT, HAVE TROUBLE BREATHING OR ANY OTHER CONCERNING SYMPTOMS. - Billing Disposition and Condition Condition: STABLE Disposition: Home - Attestation Statements Document Initiated by David: Yes Documenting Oscaribpeter: Nisha Earl Provider For Whom David is Documenting (Include Credential): Scott Landaverde MD Scribe Attestation: Nisha Laureano, scribed for Scott Landaverde MD on 11/18/19 at 1704. Scribe Documentation Reviewed: Yes Provider Attestation: The documentation as recorded by the Nisha jacome accurately reflects the service I personally performed and the decisions made by me, Scott Landaverde MD Status of Scribe Document: Viewed
[2019-11-18] MEDS ORDERED: NS 0.9% 1000 ML** 1,000 ML IV ONE (13:34)
[2019-11-18] MEDS ORDERED: Morphine 4 MG/ML VIAL (1 ml) 4 MG/ML VIAL IV ONE (13:34)
--- OUTSIDE RECORDS SUMMARY | 2019-11-18 13:40 | XMS REPORT | Continuity of Care Document ---
:1990 External Reference #:[id number] Author Name Curtis James MD ([facility] Address [address] [place] [id number] Care Team Providers Name Role Phone Phong Monreal MD Care Team Information Layout Artist [phone] Problems Active Problems Provider Date H/O: pulmonary embolus Curtis James MD Onset: 10/15/2019 Hemorrhage of rectum and anus Rosa Christopher PA-C Onset: 02/12/2019 Diarrhea Rosa Christopher PA-C Onset: 01/29/2019 Crohn's disease of small intestine Curtis James MD Onset: 09/11/2018 Gastroesophageal reflux disease Curtis James MD Onset: 01/25/2016 Epigastric pain Curtis James MD Onset: 01/25/2016 Crohn's disease of small AND large Curtis James MD Onset: 07/14/2015 intestines Eruption Curtis James MD Onset: 07/14/2015 External hemorrhoids without MATT Chin Onset: 07/03/2014 complication Melena MATT Chin Onset: 07/03/2014 Crohn's disease Curtis James MD Onset: 08/14/2012 Crohn's disease Onset: Social History Type Date Description Comments Sex Unknown Tobacco Use Start: Unknown End: Unknown Patient is a former smoker Smoking Status Reviewed: 10/15/19 Patient is a former smoker Allergies, Adverse Reactions, Alerts Description No Known Drug Allergies Medications Active Medications SIG Qnty Indications Ordering Date Provider Oxycodone-Acetamino 1 by mouth every 12 45tabs Curtis D. 10/24/2019 phen hours as needed pain MD Erika 5-325mg Tablets Stelara inject 1 syringe 1ml Curtis D. 10/22/2019 90mg/ml subcutaneously every MD Erika Soln Prefill 8 weeks Syringe Fluconazole take 2 po on day #1, 8tabs Curtis D. 10/14/2019 100mg then 1 po q day for MD Erika Tablets next 6 days Prednisone 4 po q day x 5 days, QS Curtis D. 09/05/2019 10mg then 3 po qday x 5 MD Erika Tablets days, then 2 po q day x 5 days, then 1 po q day, then1 po qother day x 6 days, then stop Lidocaine apply small dab to 90gm Curtis D. 09/01/2019 (Anorectal) rectum twice a day; MD Erika 5% must be sulfite free Cream Zofran 1 tab by mouth three 30tabs Curtis D. 08/13/2019 8mg Tablets times a day as needed MD Erika Entyvio See Instructions Unknown 12/14/2018 300mg Solution Rec Pantoprazole Sodium 1 tablet by mouth 60tabs Curtis D. 09/02/2018 twice a day MD Erika 40mg Tablets DR Hyoscyamine Sulfate take 1 to 3 tablets 30tabs K50.818 Curtis D. 06/27/2018 SL by mouth daily as MD Erika 0.125mg Tablets needed for diarrhea, Sub pain Ra Turmeric Every Day Unknown 04/10/2018 500mg Capsules Zyrtec Allergy Every Day Unknown 02/05/2018 10mg Tablets Emla Monthly Unknown 09/28/2017 2.5-2.5% Cream Singulair Bedtime Unknown 11/27/2016 10mg Tablets Ventolin HFA Q4H Unknown 11/27/2016 108(90Base) mcg/Act Aerosol Dha Daily Unknown 200mg Capsules Vitamin B-12 Daily Phong Monreal, 1000mcg Tablets Vitamin D3 Daily Unknown 2000Unit Capsules Proair HFA prn Phong Monreal, 108(90Base) mcg/Act Aerosol Clobetasol prn Tyler Garibay Propionate 0.05% Cream Venlafaxine HCL 1 Tablet Daily Unknown 75mg Tablets Eliquis bid Unknown 5mg Tablets History Medications Prednisone Please See Attached 1Tablet Curtis James, 09/05/2019 - 10mg For Detailed 09/05/2019 Tablets Directions Prednisone Please See Attached 1Tablet Curtis James, 09/04/2019 - 10mg For Detailed 09/04/2019 Tablets Directions Immunizations Description No Information Available Vital Signs Date Vital Result Comment 10/15/2019 12:02pm Height 60 inches 5'0" Weight 202.00 lb BP Systolic 130 mmHg BP Diastolic 96 mmHg Heart Rate 109 /min BMI (Body Mass Index) 39.4 kg/m2 06/05/2019 3:12pm Height 60 inches 5'0" BP Systolic 112 mmHg BP Diastolic 77 mmHg Heart Rate 100 /min Results Test Acquired Facility Test Result H/L Range Note Date Laboratory 10/23/2019 [facility] [place] SEE RESULT 1 test finding Pathology BELOW Order Laboratory 10/16/2019 [facility] [place] CMV By PCR Undetected Undetected 2 test finding IU/mL CBC No Diff 09/02/2019 [facility] [place] White Blood 5.9 10^3/uL Normal 3.5-10.8 Count Red Blood Count 4.55 10^6/uL Normal 3.70-4.87 Hemoglobin 10.8 g/dL Low 12.0-16.0 Hematocrit 33 % Low 35-47 Mean Corpuscular Volume 72 fL Low 80-97 Mean Corpuscular Hemoglobin 24 pg Low 27-31 Mean Corpuscular HGB Conc 33 g/dL Normal 31-36 Red Cell Distribution Width 16 % High 10-15 Platelet Count 373 10^3/uL Normal 150-450 Mean Platelet Volume 7.8 fL Normal 7.4-10.4 CMP(!) 09/02/2019 [facility] [place] Sodium 137 mmol/L Normal 135-145 Potassium 4.2 mmol/L Normal 3.5-5.0 Chloride 103 mmol/L Normal 101-111 Co2 Carbon Dioxide 28 mmol/L Normal 22-32 Anion Gap 6 mmol/L Normal 2-11 Glucose 106 mg/dL High 70-100 Blood Urea Nitrogen 11 mg/dL Normal 6-24 Creatinine 0.58 mg/dL Normal 0.51-0.95 BUN/Creatinine Ratio 19.0 Normal 8-20 Calcium 9.3 mg/dL Normal 8.6-10.3 Total Protein 6.5 g/dL Normal 6.4-8.9 Albumin 4.0 g/dL Normal 3.2-5.2 Globulin 2.5 g/dL Normal 2-4 Albumin/Globulin Ratio 1.6 Normal 1-3 Total Bilirubin 0.60 mg/dL Normal 0.2-1.0 Alkaline Phosphatase 73 U/L Normal 34-104 Alt 13 U/L Normal 7-52 Ast 13 U/L Normal 13-39 Egfr Non- 123.8 >60 Egfr 149.8 >60 3 Laboratory test 09/02/2019 [facility] [place] Reactive Protein < 1.00 mg/L Normal < 8.01 finding CBC Auto Diff 06/23/2019 [facility] [place] White Blood Count 7.1 10^3/uL Normal 3.5- 10.8 Red Blood Count 4.69 10^6/uL Normal 3.70-4.87 Hemoglobin 12.3 g/dL Normal 12.0-16.0 Hematocrit 37 % Normal 35-47 Mean Corpuscular Volume 78 fL Low 80-97 Mean Corpuscular Hemoglobin 26 pg Low 27-31 Mean Corpuscular HGB Conc 34 g/dL Normal 31-36 Red Cell Distribution Width 14 % Normal 10-15 Platelet Count 313 10^3/uL Normal 150-450 Mean Platelet Volume 7.7 fL Normal 7.4-10.4 Abs Neutrophils 4.5 10^3/uL Normal 1.5-7.7 Abs Lymphocytes 2.0 10^3/uL Normal 1.0-4.8 Abs Monocytes 0.4 10^3/uL Normal 0-0.8 Abs Eosinophils 0.2 10^3/uL Normal 0-0.6 Abs Basophils 0.0 10^3/uL Normal 0-0.2 Abs Nucleated RBC 0.0 10^3/uL Granulocyte % 62.7 % Lymphocyte % 28.3 % Monocyte % 5.7 % Eosinophil % 2.8 % Basophil % 0.5 % Nucleated Red Blood Cells % 0.0 Comp Metabolic Panel 06/23/2019 [facility] [place] Sodium 137 mmol/L Normal 135-145 Potassium 3.8 mmol/L Normal 3.5-5.0 Chloride 107 mmol/L Normal 101-111 Co2 Carbon Dioxide 24 mmol/L Normal 22-32 Anion Gap 6 mmol/L Normal 2-11 Glucose 107 mg/dL High 70-100 Blood Urea Nitrogen 8 mg/dL Normal 6-24 Creatinine 0.52 mg/dL Normal 0.51-0.95 BUN/Creatinine Ratio 15.4 Normal 8-20 Calcium 9.1 mg/dL Normal 8.6-10.3 Total Protein 6.7 g/dL Normal 6.4-8.9 Albumin 4.0 g/dL Normal 3.2-5.2 Globulin 2.7 g/dL Normal 2-4 Albumin/Globulin Ratio 1.5 Normal 1-3 Total Bilirubin 0.30 mg/dL Normal 0.2-1.0 Alkaline Phosphatase 69 U/L Normal 34-104 Alt 15 U/L Normal 7-52 Ast 14 U/L Normal 13-39 Egfr Non- 141.5 >60 Egfr 171.2 >60 4 Laboratory test 06/23/2019 [facility] [place] Erythrocyte Sed Rate 11 mm/Hr Normal 0-19 finding Comp Metabolic Panel 05/16/2019 [facility] [place] Sodium 137 mmol/L Normal 135-145 Potassium 4.3 mmol/L Normal 3.5-5.0 Chloride 103 mmol/L Normal 101-111 Co2 Carbon Dioxide 29 mmol/L Normal 22-32 Anion Gap 5 mmol/L Normal 2-11 Glucose 102 mg/dL High 70-100 Blood Urea Nitrogen 13 mg/dL Normal 6-24 Creatinine 0.53 mg/dL Normal 0.51-0.95 BUN/Creatinine Ratio 24.5 High 8-20 Calcium 9.3 mg/dL Normal 8.6-10.3 Total Protein 6.3 g/dL Low 6.4-8.9 Albumin 4.0 g/dL Normal 3.2-5.2 Globulin 2.3 g/dL Normal 2-4 Albumin/Globulin Ratio 1.7 Normal 1-3 Total Bilirubin 0.50 mg/dL Normal 0.2-1.0 Alkaline Phosphatase 94 U/L Normal 34-104 Alt 20 U/L Normal 7-52 Ast 16 U/L Normal 13-39 Egfr Non- 138.4 >60 Egfr 167.4 >60 5 Laboratory test 05/16/2019 [facility] [place] [place] Reactive Protein 1.83 mg/L Normal <8.01 finding CBC Auto Diff 05/16/2019 [facility] [place] White Blood Count 8.3 10^3/uL Normal 3.5- 10.8 Red Blood Count 4.54 10^6/uL Normal 3.70-4.87 Hemoglobin 12.9 g/dL Normal 12.0-16.0 Hematocrit 38 % Normal 35-47 Mean Corpuscular Volume 83 fL Normal 80-97 Mean Corpuscular Hemoglobin 28 pg Normal 27-31 Mean Corpuscular HGB Conc 34 g/dL Normal 31-36 Red Cell Distribution Width 14 % Normal 10-15 Platelet Count 338 10^3/uL Normal 150-450 Mean Platelet Volume 7.8 fL Normal 7.4-10.4 Abs Neutrophils 5.6 10^3/uL Normal 1.5-7.7 Abs Lymphocytes 1.9 10^3/uL Normal 1.0-4.8 Abs Monocytes 0.5 10^3/uL Normal 0-0.8 Abs Eosinophils 0.3 10^3/uL Normal 0-0.6 Abs Basophils 0.0 10^3/uL Normal 0-0.2 Abs Nucleated RBC 0.0 10^3/uL Granulocyte % 67.3 % Lymphocyte % 23.3 % Monocyte % 5.7 % Eosinophil % 3.1 % Basophil % 0.6 % Nucleated Red Blood Cells % 0.2 1 SEE RESULT BELOW Name: MAGGIE COREY : [address]: Curtis James MD Acct: [id number] Unit: [id number] AGE: 29 Location: ENDO Re10/23/19 SEX: F Status: DEP REF SPEC: [id number] RUBY: 10/23/19- SUBM DR: Curtis James MD REQ: [id number] RECD: 10/23/19-7849 STATUS: TAMRA PLEITEZ DR: Phong Monreal MD _ ORDERED: LEVEL 4/2 FINAL DIAGNOSIS 1. Small bowel, biopsy: -- Benign small intestinal mucosa with no significant pathologic abnormalities. -- No evidence of villous blunting or increased intraepithelial lymphocytes. 2. Colon, rectum, biopsy: -- Mild chronic, inactive colitis. -- Dysplasia is absent. COMMENT: The presence of a granuloma in the rectal specimen suggests the possibility of Crohn's disease. Clinical-pathologic correlation is recommended. POST-OPERATIVE DIAGNOSIS Colonoscopy: to terminal ileum; unknown inflammation; very mild colitis - biopsy; huge hemorrhoids GROSS DESCRIPTION 1. The specimen is received in formalin labeled, Biopsy Small Bowel, and consists of a 0.9 by up to 0.3 x 0.1 cm bonilla-pink irregular soft tissue fragment which is submitted entirely in one cassette. 2. The specimen is received in formalin labeled, Biopsy Rectal, and consists of two bonilla-pink irregular soft tissue fragments 0.3 x 0.2 by up to 0.2 cm and 0.4 x 0.3 x 0.1 cm CONTINUED ON NEXT PAGE DEPARTMENT OF PATHOLOGY, [facility] [employer] [place], [place] [address] Jorden Zapata M.D. Director [facility] # [id number] which are submitted entirely in one cassette. Signed by and Reported on: Tiera Beard MD 10/24/19 1713 END OF REPORT DEPARTMENT OF PATHOLOGY, [facility] [employer] [place], [place] [address] Jorden Zapata M.D. Director [place] # [id number] 2 Result in log IU/mL is Undetected. ADDITIONAL INFORMATION The quantification range of this assay is 35 to 10,000,000 IU/mL (1.54 log to 7.00 log IU/mL). Testing was performed using the seth CMV test ([employer] with the seth EverZero0 System. Test Performed by: [facility] [address] [place] [id number] Clearing Inspector: Scott Biswas M.D. Ph.D.; CLIA# [id number] 3 Because ethnic data is not always [...] 15-29 5 Kidney failure <15 (or dialysis) Procedures Date Code Description Status 10/23/2019 51666 Moderate Sedation Services; Same Phys Each Additional 15 Completed Mins 10/23/2019 69281 Moderate Sedation Services; Same Phys Each Additional 15 Completed Mins 10/23/2019 89261 Moderate Sedation Services; Same Phys Intl 15 Mins; PT >= Completed 5 Years 10/23/2019 69256 Colonscopy+Biopsy Completed Medical Devices Description No Information Available Encounters Type Date Location Provider Dx Diagnosis Office Visit 10/15/2019 Gastroenterology Curtis Bear K50.011 Crohn's disease 12:00p Alexia James MD of small intestine with rectal bleeding K62.5 Hemorrhage of anus and rectum Z86.711 Personal history of pulmonary embolism Office Visit 06/05/2019 Gastroenterology Curtis Bear K50.011 Crohn's 3:00p Alexia James MD disease of small intestine with rectal bleeding Office Visit 05/20/2019 Gastroenterlakesha Bear K50.011 Crohn's 12:30p Alexia James MD disease of small intestine with rectal bleeding Assessments Date Code Description Provider 10/23/2019 K50.90 Crohn's disease, unspecified, without Curtis James MD complications 10/15/2019 K50.011 Crohn's disease of small intestine with Curtis James MD rectal bleeding 10/15/2019 K62.5 Hemorrhage of anus and rectum Curtis James MD 10/15/2019 Z86.711 Personal history of pulmonary embolism Curtis James MD 06/05/2019 K50.011 Crohn's disease of small intestine with Curtis James MD rectal bleeding 05/20/2019 K50.011 Crohn's disease of small intestine with Curtis James MD rectal bleeding Plan of Treatment 10/15/2019 - Curtis James MDK50.011 Crohn's disease of small intestine with rectal bleedingNew Labs:CMV Dna QL PCR Blood, Ordered: 10/15/19Comments:I had a very long and extensive conversation with Maggie regarding her Crohn's and her PE. My concern is that she could have steroid requiring Crohn's disease. When she saw the colorectal surgeon thesigmoidoscopy appeared normal. Now she is having increased symptoms. I do wonder if the steroids have been wearing off she is only on 10 mg a day at this time. She is in between her Entyvio and we have not been able to start the Stelara yet. I would like to check a CMV PCR to rule that out. We are going to set up the Stelara as soonest we can. She will call me with an update. If the Stelara does not work we may need to consider reevaluation by colorectal omnlpzaV14.5 Hemorrhage of anus and tdgnhfE38.711 Personal history of pulmonary embolism Functional Status Description No Information Available Mental Status Description No Information Available Referrals Description No Information Available
--- OUTSIDE RECORDS SUMMARY | 2019-11-18 13:40 | XMS REPORT | Continuity of Care Document ---
:1990 External Reference #:[id number] Author Name Alexis Osorio MD (transmitted by agent of provider Su Washington) Address [address] [place] [address] Care Team Providers Name Role Phone Phong Monreal MD - Family Medicine Care Team Information Quality Process Engineer [phone] Problems Active Problems Provider Date Lumbar radiculopathy Leonides Mejia M.D. Onset: 05/30/2017 Displacement of lumbar intervertebral disc Leonides Mejia M.D. Onset: 2016 without myelopathy Social History Type Date Description Comments Sex Unknown Tobacco Use Start: Unknown Former Cigarette Smoker 1 pack daily for 6 End: Unknown years Smoking Status Reviewed: 07/25/19 Former Cigarette Smoker 1 pack daily for 6 years ETOH Use Occasionally consumes alcohol Tobacco Use Start: Unknown Patient is a former quit 2013 End: Unknown smoker Recreational Drug Use Denies Drug Use Enjoy Exercising Does not enjoy exercising Exercise Type/Frequency Exercises regularly yoga, stretching, balance exercises 0-3 times per week, 10-30 minutes Allergies, Adverse Reactions, Alerts Active Allergies Reaction Severity Comments Date NKDA 09/16/2010 seasonal 09/16/2010 Adhesive rash 07/25/2019 Medications Active Medications SIG Qnty Indications Ordering Provider Date Heparin Flush 5 ml syringe 1units K50.00 Rafa Dominguez MD, 07/25/2019 FACS Power Port Flush flush power port 1units Rafa Dominguez MD, 09/18/2018 0.9% every 4 weeks in FACS Solution the infusion center of [facility] Protonix 1 by mouth every Unknown 40mg Tablets day DR Strong Allergy 1 by mouth every Unknown 10mg day Tablets Effexor XR 1 by mouth every Unknown 75mg Caps ER day 24HR Multi Vitamin Daily 1 by mouth every Unknown day Tablets Magnesium 1 by mouth once a Unknown 200mg day Chewtabs Probiotic 1 by mouth every Unknown Capsules day Entyvio once 2 months Unknown 300mg Solution Rec Lisa Giron, CARMENCITA 5mg Tablets Immunizations Description No Information Available Vital Signs Date Vital Result Comment 07/25/2019 9:29am Height 60 inches 5'0" Weight 200.00 lb Heart Rate 78 /min BP Systolic Sitting 124 mmHg BP Diastolic Sitting 80 mmHg Respiratory Rate 16 /min Body Temperature 99.2 F BMI (Body Mass Index) 39.1 kg/m2 07/11/2017 11:23am Height 60 inches 5'0" Weight 203.00 lb Heart Rate 70 /min BP Systolic Sitting 120 mmHg BP Diastolic Sitting 70 mmHg Pain Level 7 BMI (Body Mass Index) 39.6 kg/m2 Results Description No Information Available Procedures Description No Information Available Medical Devices Description No Information Available Encounters Type Date Location Provider Dx Diagnosis Office Visit 10/27/2019 [facility] Alexis Osorio MD I26.99 Other pulmonary 10:[facility] embolism without [place] acute cor pulmonale Z79.01 [facility] (current) use of anticoagulants K50.00 Crohn's disease of small intestine without complications D50.9 Iron deficiency anemia, unspecified Z97.5 Presence of (intrauterine) contraceptive device Office Visit 07/25/2019 Surgical Rafa Dominguez, K50.00 Crohn's disease [facility] 9:[facility] small intestine [employer] without complications Assessments Date Code Description Provider 10/27/2019 I26.99 Other pulmonary embolism without acute cor Alexis Osorio MD pulmonale 10/27/2019 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 Alexis Osorio MD 10/27/2019 K50.00 Crohn's disease of small intestine without Alexis Osorio MD complications 10/27/2019 D50.9 Iron deficiency anemia, unspecified Alexis Osorio MD 10/27/2019 Z97.5 Presence of (intrauterine) contraceptive Alexis Osorio MD device 10/13/2019 K50.00 Crohn's disease of small intestine without Alexis Osorio MD complications 10/13/2019 D50.9 Iron deficiency anemia, unspecified Alexis Osorio MD 10/13/2019 I26.99 Other pulmonary embolism without acute cor Alexis Osorio MD pulmonale 10/13/2019 Z97.5 Presence of (intrauterine) contraceptive Alexis Osorio MD device 07/25/2019 K50.00 Crohn's disease of small intestine without Rafa Dominguez MD, FACS complications Plan of Treatment Future Appointment(s):12/01/2019 1:00 [facility] - Rafa Dominguez MD, FACSK50.00 Crohn's disease of small intestine without complicationsNew Medication:Heparin Flush - 5 ml syringe Functional Status Description No Information Available Mental Status Description No Information Available Referrals Description No Information Available
--- OUTSIDE RECORDS SUMMARY | 2019-11-18 13:41 | XMS REPORT | Summary of Care ---
:1990 Author Organization [facility] Address [address] [place] [address] Care Team Providers Name Role Phone Phong Monreal MD Primary Care Provider Reason for Visit Reason Comments Follow-up discuss hemorrhoid surgery Encounter Details Date Type Department Care Team Description 10/30/2019 Office Visit [facility] Alexis King Hemorrhoids, external without complications (Primary Dx); [address] MD Crohn's disease of both small and large intestine with other complication [address], [place] [address] [id number] [place], [place] [phone] [address] Allergies Active Allergy Reactions Severity Noted Date Comments Adhesive Tape Rash Low 10/09/2019 documented as of this encounter (statuses as of 10/30/2019) Medications Medication Sig Dispensed Refills Start End Date Status Date Ondansetron 8 MG 0 Active Oral Tablet 9 Disintegrating (ZOFRAN-ODT) Pantoprazole Sodium 0 Active 40 MG Oral Tablet 9 Delayed Release (PROTONIX) Hyoscyamine Sulfate 0 Active 0.125 MG Sublingual 9 Tablet Sublingual (LEVSIN/SL) Montelukast Sodium 0 Active 10 MG Oral Tablet 9 (SINGULAIR) Vedolizumab 300 MG Inject 300 mg 0 Active Intravenous into the vein Solution once Reconstituted (ENTYVIO) Turmeric 500 MG Take by mouth 0 Active Oral Capsule Cetirizine HCl 10 Take 10 mg by 0 Active MG Oral Tablet mouth daily (ZYRTEC) Albuterol Sulfate Inhale 2 puffs 0 Active HFA 108 (90 Base) into the lungs MCG/ACT Inhalation every 6 (six) Aerosol Solution hours as needed (VENTOLIN HFA) for Wheezing Cyanocobalamin Take by mouth 0 Active (VITAMIN B 12 PO) Vitamin D3 50 MCG Take by mouth 0 Active (2000 UT) Oral Tablet Albuterol Sulfate Inhale into the 0 Active 108 (90 Base) lungs MCG/ACT Inhalation Aerosol Powder Breath Activated (PROAIR RESPICLICK) Clobetasol Prop Apply topically 0 Active Emollient Base 0.05 Two Times Daily % External Cream (CLOBETASOL PROPIONATE E) Venlafaxine HCl ER 0 Active 75 MG Oral Capsule 9 Extended Release 24 Hour (EFFEXOR-XR) Eliquis 5 MG Oral Take 5 mg by 0 Active Tablet mouth Two Times 0 Daily oxyCODONE-Acetamino 0 Active phen 5-325 MG Oral 0 Tablet (PERCOCET) Stelara 90 MG/ML 0 Active Subcutaneous 0 Solution Prefilled Syringe Enema 7-19 GM/118ML Place 2 Bottles 2 Bottle 0 10/31/19 Active Rectal Enema rectally every 0 20 hour for 2 dosesStart 3 hours before procedure predniSONE 10 MG 0 10/30/19 Discontinued Oral Tablet 0 20 (Therapy (DELTASONE) completed) Ciprofloxacin HCl TK 1 T PO BID 0 10/30/19 Discontinued 500 MG Oral Tablet 0 20 (Therapy (CIPRO) completed) metroNIDAZOLE 500 TK 1 T PO TID 0 10/30/19 Discontinued MG Oral Tablet 0 20 (Therapy (FLAGYL) completed) documented as of this encounter (statuses as of 10/30/2019) Active Problems Problem Noted Date Crohn's disease GERD (gastroesophageal reflux disease) Hemorrhoids, external without complications Melena documented as of this encounter (statuses as of 10/30/2019) Social History Tobacco Use Types Packs/Day Years Used Date Former Smoker Cigarettes 1 6 Smokeless Tobacco: Never Used Comments: quit 2012 Alcohol Use Drinks/Week oz/Week Comments Yes occassional Sex Assigned at Date Recorded Not on file Job Start Date Occupation Industry Not on file Not on file Not on file Travel History Travel Start Travel End No recent travel history available. documented as of this encounter Last Filed Vital Signs Vital Sign Reading Time Taken Comments Blood Pressure 129/81 10/30/2019 3:57 PM EST Pulse 105 10/30/2019 3:57 PM EST Temperature 36.5 10/30/2019 3:57 PM EST C (97.7 F) Respiratory Rate 16 10/30/2019 3:57 PM EST Oxygen Saturation 97% 10/30/2019 3:57 PM EST Inhaled Oxygen Concentration - - Weight 93.2 kg (205 lb 6.4 oz) 10/30/2019 3:57 PM EST Height 152.4 cm (5') 10/30/2019 3:57 PM EST Body Mass Index 40.11 10/30/2019 3:57 PM EST documented in this encounter Progress Notes Alexis King MD - 10/30/2019 3:45 PM ESTPlease see accompanying resident/medical student note for my detailed input. Surinder Duggan MD - 10/30/2019 3: 45 PM EST Subjective: Patient ID: Maggie Klein is a 29 y.o. female. HPI Ms. Klein is a 29 y/o female last seen in colorectal surgery clinic on 2019 for bloody diarrhea, cramping abdominal pain and tenesmus in the setting of a recent Crohn's disease flare. Today she presents for evaluation of hemorrhoids and possible surgical intervention. She endorses having these hemorrhoids for years, saying that they frequently bleed and cause excruciating pain. She is able to feel tissue protrude at all times, and has tried sitz baths with only transient relief. Currently on Eliquis for 6 months (started &lt ; 1 month ago) for PE during the aforementioned Crohn's flare. On Stelara for her Crohn's disease. REVIEW OF SYSTEMS: The patient denies chest pain, shortness of breath, nausea, vomiting, dizziness , lightheadedness, fevers or chills. 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 HENT: Head: Normocephalic and atraumatic. Cardiovascular: Rate and Rhythm: Normal rate. Chest: Chest wall: No tenderness. Abdominal: General: There is no distension. Palpations: Abdomen is soft. Tenderness: There is no abdominal tenderness. Comments: Anal exam: Multiple external hemorrhoid tags visible extending past the anal verge. Skin: General: Skin is warm and dry. Capillary Refill: Capillary refill takes less than 2 seconds. Neurological: Mental Status: She is alert and oriented to person, place, and time. Vitals: 10/30/19 1557 BP: 129/81 Pulse: (!) 105 Resp: 16 Temp: 36.5 C (97.7 F) SpO2: 97% Assessment and Plan: Ms. Klein is a 29 y/o female here for evaluation of hemorrhoids. Given the symptomatic nature of her hemorrhoids, external hemorrhoid excision and internal hemorrhoid suture ligation were offered. Benefits and risks were explained including increased tenesmus, bleeding, infection, recurrence and increased pain. Ms. Klein verbalized understanding and is willing to proceed. - Plan for external hemorrhoid excision and internal hemorrhoid suture ligation. - Please call if there are any questions in the interim. Surinder Hand, PGY1 Pager: [phone] Staff Attestation/Addendum: Ms. Klein has very large EH, worsening hematochezia, and persistent tenesmus without any evidence of proctitis from her CD. Based on her worsening symptoms , I feel that it is reasonable to consider excision of the EH and suture ligation of the IH. We discussed that since she is on Eliquis for PE, the surgery can be done prior to stopping with a slightly higher bleeding risk vs waiting until afteroff meds (5 months). She prefers the former. We also discussed that resolution of the tenesmus cannot be predicted, and may in fact be worse after surgery. She voiced understanding and still would like to proceed. She has used up most of her time off, and likely will RTW for at least a few weeks prior to having surgery done. The patient was advised about the surgical risks, including bleeding, infection, injury to other organs, need for additional surgery, irregular heartbeat, heart attack, pneumonia, DVT/PE, and . The patient consents to surgery I directly interviewed the patient, performed mauricio portions of the examination, personally reviewed pertinent ancillary data/imaging, and supervised the mauricio medical decision-making/plan of care. I agreewith the assessment, meds, and plan proposed by resident, unless mentioned above in this attending note. Alexis King MD 10/30/19 9:45 PM documented in this encounter Plan of Treatment Health Maintenance Due Date Last Done Comments MMR Vaccines (1 of 1 - Standard 1992 series) Varicella Vaccines (1 of 2 - 1992 2-dose childhood series) DTaP,Tdap,and Td Vaccines (1 - 1998 Tdap) HIV Screening 2004 Cervical Cancer Screening 3 years 2012 Influenza Vaccine 05/27/2019 Pneumococcal Vaccine: 65+ Years (1 2056 of 2 - PCV13) HIB Vaccines Aged Out No longer eligible based on patient's age to complete this topic Hepatitis A Vaccines Aged Out No longer eligible based on patient's age to complete this topic Hepatitis B Vaccines Aged Out No longer eligible based on patient's age to complete this topic IPV Vaccines Aged Out No longer eligible based on patient's age to complete this topic Pneumococcal Vaccine: Pediatrics Aged Out No longer eligible based on (0 to 5 Years) and At-Risk patient's age to complete this Patients (6 to 64 Years) topic documented as of this encounter Results Not on filedocumented in this encounter Visit Diagnoses Diagnosis Hemorrhoids, external without complications - Primary External hemorrhoids without mention of complication Crohn's disease of both small and large intestine with other complication documented in this encounter
--- OUTSIDE RECORDS SUMMARY | 2019-11-18 13:41 | XMS REPORT | Continuity of Care Document ---
:1990 External Reference #:[id number] Author Name Curtis James MD Address [address] [place] [address] Care Team Providers Name Role Phone Phong Monreal MD Care Team Information Mix Mill Tender [phone] Problems Active Problems Provider Date H/O: pulmonary [...] Medications SIG Qnty Indications Ordering Date Provider Fluconazole take 2 po on day #1, 8tabs Curtis Henry. 10/14/2019 100mg then 1 po q day for MD Erika Tablets next 6 days Prednisone 4 po q day x 5 days, QS Curtis Henry. 09/05/2019 10mg then 3 po qday x 5 MD Erika Tablets days, then 2 po q day x 5 days, then 1 po q day, then1 po qother day x 6 days, then stop Lidocaine apply small dab to 90gm Curtis Bear 09/01/2019 (Anorectal) rectum twice a day; MD Erika 5% Cream must be sulfite free Zofran 1 tab by mouth three 30tabs Curtis Henry. 08/13/2019 8mg Tablets times a day as MD Erika needed Entyvio See Instructions Unknown 12/14/2018 300mg Solution Rec Pantoprazole Sodium 1 tablet by mouth 60tabs Curtis D. 09/02/2018 twice a day MD Erika 40mg Tablets DR Hyoscyamine Sulfate take 1 to 3 tablets 30tabs K50.818 Curtis Bear 06/27/2018 SL by mouth daily as MD Erika 0.125mg Tablets needed for diarrhea, Sub pain Ra Turmeric Every Day Unknown 04/10/2018 500mg Capsules Zyrtec Allergy Every Day Unknown 02/05/2018 10mg Tablets Emla Monthly Unknown 09/28/2017 2.5-2.5% Cream Ventolin HFA Q4H Unknown 11/27/2016 108(90Base) mcg/Act Aerosol Singulair Bedtime Unknown 11/27/2016 10mg Tablets Dha Daily Unknown 200mg Capsules Vitamin B-12 [...] Curtis James, 09/04/2019 - 10mg For Detailed MD 09/04/2019 Tablets Directions Immunizations Description No Information Available Vital Signs Date Vital Result Comment 10/15/2019 12:02pm Height 60 inches 5'0" Weight 202.00 lb BP Systolic 130 mmHg BP Diastolic 96 mmHg Heart Rate 109 /min BMI (Body Mass Index) 39.4 kg/m2 06/05/2019 3:12pm Height 60 inches 5'0" BP Systolic 112 mmHg BP Diastolic 77 mmHg Heart Rate 100 /min Results Test Acquired Date Facility Test Result H/L Range Note Laboratory test 10/16/2019 [facility] CMV By PCR Undetected Undetected 1 finding IU/mL CBC No Diff 09/02/2019 [facility] White 5.9 10^3/uL Normal 3.5-10.8 Blood Count Red Blood Count 4.55 10^6/uL Normal 3.70-4.87 Hemoglobin 10.8 g/dL Low 12.0-16.0 Hematocrit 33 % Low 35-47 Mean Corpuscular Volume 72 fL Low 80-97 Mean Corpuscular Hemoglobin 24 pg Low 27-31 Mean Corpuscular HGB Conc 33 g/dL Normal 31-36 Red Cell Distribution Width 16 % High 10-15 Platelet Count 373 10^3/uL Normal 150-450 Mean Platelet Volume 7.8 fL Normal 7.4-10.4 CMP(!) 09/02/2019 [facility] Sodium 137 mmol/L Normal 135-145 Potassium 4.2 [...] Egfr Non- 123.8 >60 Egfr 149.8 >60 2 Laboratory test 09/02/2019 [facility] [place] Reactive Protein < 1.00 mg/L Normal < 8.01 finding CBC Auto Diff 06/23/2019 [facility] White Blood Count 7.1 10^3/uL Normal 3.5- [...] Cells % 0.0 Comp Metabolic Panel 06/23/2019 [facility] Sodium 137 mmol/L Normal 135-145 Potassium 3.8 [...] Egfr Non- 141.5 >60 Egfr 171.2 >60 3 Laboratory test 06/23/2019 [facility] Erythrocyte Sed Rate 11 mm/Hr Normal 0-19 finding Comp Metabolic Panel 05/16/2019 [facility] Sodium 137 mmol/L Normal 135-145 Potassium 4.3 [...] Egfr Non- 138.4 >60 Egfr 167.4 >60 4 Laboratory test 05/16/2019 [facility] [place] Reactive Protein 1.83 mg/L Normal <8.01 finding CBC Auto Diff 05/16/2019 [facility] White Blood Count 8.3 10^3/uL Normal 3.5- [...] Nucleated Red Blood Cells % 0.2 1 Result in log IU/mL is Undetected. ADDITIONAL INFORMATION The quantification range of this assay is 35 to 10,000,000 IU/mL (1.54 log to 7.00 log IU/mL). Testing was performed using the seth CMV test ([employer] with the seth [employer] System. Test Performed by: [place] [address] Repairer Wood Furniture: Scott Biswas M.D. Ph.D.; [facility]# [id number] 2 Because ethnic data is not always readily [...] 15-29 5 Kidney failure <15 (or dialysis) 3 Because ethnic data is not always [...] 5 Kidney failure <15 (or dialysis) Procedures Description No Information Available Medical Devices Description No Information Available Encounters Type Date Location Provider Dx Diagnosis Office Visit 10/15/2019 Gastroenter[facility] Curtis Bear K50.011 Crohn's disease 12:00p Alexia James MD of small intestine with rectal bleeding K62.5 Hemorrhage of anus and rectum Z86.711 Personal history of pulmonary embolism Office Visit 06/05/2019 [facility] Bear K50.011 Crohn's 3:00p Alexia James MD disease of small intestine with rectal bleeding Office Visit 05/20/2019 [facility] Gutierrez0.011 Crohn's 12:30p Alexia James MD disease of small intestine with rectal bleeding Assessments Date Code Description Provider 10/15/2019 K50.011 Crohn's disease of small intestine with Curtis James MD rectal bleeding 10/15/2019 K62.5 Hemorrhage of anus and rectum Curtis James MD 10/15/2019 Z86.711 Personal history of pulmonary embolism Curtis James MD 06/05/2019 K50.011 Crohn's disease of small intestine with Curtis James MD rectal bleeding 05/20/2019 K50.011 Crohn's disease of small intestine with Curtis James MD rectal bleeding Plan of Treatment Future Appointment(s):10/23/2019 10:00 am - [facility]/15/2019 - Curtis James MDK50.011 Crohn's disease of [...] may need to consider reevaluation by colorectal hhnbmpmU04.5 Hemorrhage of anus and yommhmM21.711 Personal history of pulmonary embolism Functional Status Description No Information Available Mental Status Description No Information Available Referrals Description No Information Available
--- OUTSIDE RECORDS SUMMARY | 2019-11-18 13:41 | XMS REPORT | Summary of Care ---
:1990 Author Organization [facility] Address [address] [place] [address] Care Team Providers Name Role Phone Phong Monreal MD Primary Care Provider Reason for Visit Reason Comments New Patient eval for small bowel stricture Encounter Details Date Type Department Care Team Description 10/09/2019 Office Visit SURGICAL SPECIALTIES Alexis King Crohn's disease of [address] [facility] Supriya Bearden MD both small and large [place] [address] [facility] intestine with other [place], [place] [address] complication (Primary [id number] [place] [address] Dx) [phone] Allergies Active Allergy Reactions Severity Noted Date Comments Adhesive Tape Rash Low 10/09/2019 documented as of this encounter (statuses as of 10/10/2019) Medications Medication Sig Dispensed Refills Start Date End Date Status predniSONE 10 MG Oral 0 10/05/2019 Active Tablet (DELTASONE) Ondansetron 8 MG Oral 0 08/13/2019 Active Tablet Disintegrating (ZOFRAN-ODT) Pantoprazole Sodium 40 0 07/03/2019 Active MG Oral Tablet Delayed Release (PROTONIX) Hyoscyamine Sulfate 0 01/16/2019 Active 0.125 MG Sublingual Tablet Sublingual (LEVSIN/SL) Montelukast Sodium 10 0 03/22/2019 Active MG Oral Tablet (SINGULAIR) Vedolizumab 300 MG Inject 300 mg 0 Active Intravenous Solution into the vein Reconstituted (ENTYVIO) once Turmeric 500 MG Oral Take by mouth 0 Active Capsule Cetirizine HCl 10 MG Take 10 mg by 0 Active Oral Tablet (ZYRTEC) mouth daily Albuterol Sulfate HFA Inhale 2 puffs 0 Active 108 (90 Base) MCG/ACT into the lungs Inhalation Aerosol every 6 (six) Solution (VENTOLIN HFA) hours as needed for Wheezing Cyanocobalamin (VITAMIN Take by mouth 0 Active B 12 PO) Vitamin D3 50 MCG (2000 Take by mouth 0 Active UT) Oral Tablet Albuterol Sulfate 108 Inhale into the 0 Active (90 Base) MCG/ACT lungs Inhalation Aerosol Powder Breath Activated (PROAIR RESPICLICK) Clobetasol Prop Apply topically 0 Active Emollient Base 0.05 % Two Times Daily External Cream (CLOBETASOL PROPIONATE E) Venlafaxine HCl ER 75 0 07/14/2019 Active MG Oral Capsule Extended Release 24 Hour (EFFEXOR-XR) Eliquis 5 MG Oral TK 2 TS PO BID X 0 10/05/2019 Active Tablet 7 DAYS THEN 1 T PO BID Ciprofloxacin HCl 500 TK 1 T PO BID 0 10/05/2019 Active MG Oral Tablet (CIPRO) metroNIDAZOLE 500 MG TK 1 T PO TID 0 10/05/2019 Active Oral Tablet (FLAGYL) oxyCODONE-Acetaminophen 0 10/05/2019 Active 5-325 MG Oral Tablet (PERCOCET) documented as of this encounter (statuses as of 10/10/2019) Active Problems Problem Noted Date Crohn's disease GERD (gastroesophageal reflux disease) Hemorrhoids, external without complications Melena documented as of this encounter (statuses as of 10/10/2019) Social History Tobacco Use Types Packs/Day Years [...] Sign Reading Time Taken Comments Blood Pressure 115/77 10/09/2019 12:59 PM EST Pulse 63 10/09/2019 12:59 PM EST Temperature 36.9 10/09/2019 12:59 PM EST C (98.5 F) Respiratory Rate 18 10/09/2019 12:59 PM EST Oxygen Saturation 99% 10/09/2019 12:59 PM EST Inhaled Oxygen Concentration - - Weight 92.2 kg (203 lb 3.2 oz) 10/09/2019 12:59 PM EST Height 152.4 cm (5') 10/09/2019 12:59 PM EST Body Mass Index 39.68 10/09/2019 12:59 PM EST documented in this encounter Progress Notes Alexis King MD - 10/09/2019 1:00 PM ESTPlease see accompanying resident/medical student note for my detailed input. Jorden Hallman MD - 2019 1:00 PM EST COLORECTAL SURGERY HISTORY AND PHYSICAL HISTORY OF PRESENT ILLNESS: Maggie Klein is a 29 y.o. female with a history of Crohn's disease who presents to clinic with worsening bloody diarrhea and crampy abdominal pain. She initially diagnosed back in the and underwent a small bowel resection and ileostomy in 2008 due to perforated Crohns disease. She subsequently had her ileostomy reversed. She was on remicaide for many years but this recently stopped working. She was switched to Entyvio last year with minimal benefit. Her last colonoscopy was in August of 2018 which was unremarkable. Her crop pest control specialist Dr. James was concerned about small bowel stricture. An MR enterography in August 2019 was performed and was negative for any acute pathology. After this, she was admitted to [facility] with bloody diarrhea, malaise , and abdominal pain.She had a CT scan performed that did not show any acute abnormalities. She had a CTA thorax done which showed a PE and she was started on eliquis. She was given cipro and flagyl and solumedrol which did help her bloody BMs and abdominal pain. She was discharged on a steroid taper. REVIEW OF SYSTEMS: The patient denies chest pain, shortness of breath, nausea, vomiting, dizziness , lightheadedness, fevers or chills. PAST MEDICAL HISTORY: Crohn's disease Depression/anxiety GERD Pulmonary embolism PAST SURGICAL HISTORY: Small bowel resection, ileostomy Ileostomy reversal SOCIAL HISTORY: Smoking: None Alcohol: None Recreational drugs: None MEDICATIONS: Current Outpatient Medications on File Prior to Visit Medication Sig Dispense Refill Albuterol Sulfate 108 (90 Base) MCG/ACT Inhalation Aerosol Powder Breath Activated (PROAIR RESPICLICK) Inhale into the lungs Albuterol Sulfate HFA 108 (90 Base) MCG/ACT Inhalation Aerosol Solution ( VENTOLIN HFA) Inhale2 puffs into the lungs every 6 (six) hours as needed for Wheezing Cetirizine HCl 10 MG Oral Tablet (ZYRTEC) Take 10 mg by mouth daily Ciprofloxacin HCl 500 MG Oral Tablet (CIPRO) TK 1 T PO BID Clobetasol Prop Emollient Base 0.05 % External Cream (CLOBETASOL PROPIONATE E) Apply topically Two Times Daily Eliquis 5 MG Oral Tablet TK 2 TS PO BID X 7 DAYS THEN 1 T PO BID Hyoscyamine Sulfate 0.125 MG Sublingual Tablet Sublingual (LEVSIN/SL) metroNIDAZOLE 500 MG Oral Tablet (FLAGYL) TK 1 T PO TID Ondansetron 8 MG Oral Tablet Disintegrating (ZOFRAN-ODT) Pantoprazole Sodium 40 MG Oral Tablet Delayed Release (PROTONIX) predniSONE 10 MG Oral Tablet (DELTASONE) Turmeric 500 MG Oral Capsule Take by mouth Venlafaxine HCl ER 75 MG Oral Capsule Extended Release 24 Hour (EFFEXOR- XR) Vitamin D3 50 MCG (1999 UT) Oral Tablet Take by mouth Cyanocobalamin (VITAMIN B 12 PO) Take by mouth Montelukast Sodium 10 MG Oral Tablet (SINGULAIR) oxyCODONE-Acetaminophen 5-325 MG Oral Tablet (PERCOCET) Vedolizumab 300 MG Intravenous Solution Reconstituted (ENTYVIO) Inject 300 mg into the vein once No current facility-administered medications on file prior to visit. ALLERGIES: Allergies Allergen Reactions Adhesive Tape Rash PHYSICAL EXAM Visit Vitals BP 115/77 (BP Location: Right arm, Patient Position: Sitting, Cuff size: Adult Large) Pulse 63 Temp 36.9 C (98.5 F) (Oral) Resp 18 Ht 1.524 m (5') Wt 92.2 kg (203 lb 3.2 oz) SpO2 99% BMI 39.68 kg/m Skin: Normal turgor and without lesions. Eyes: Pupils equally round Head: Normocephalic Heart: Regular rate and rhythm Lungs: Unlabored respirations; symmetric chest expansion, no audible stridor. Abdomen: Soft. Not tender without rebound. No distention. Well healed lower midline scar. Well healed RLQ scar at prior stoma site. Proctoscopy: No evidence of rectal inflammation. Mucosa was normal in appearance. There were large external hemorrhoid tags Extremities: Warm and well perfused. Mental Status: Alert in no distress. Neuro: Normal tone; no focal deficits appreciated. ASSESSMENT AND PLAN Maggie Klein is a 29 y.o. female with Crohn's and recent flare requiring hospitalization and IV steroids/antibioitcs. - Unfortunately, there is no surgical option that can help alleviate her symptoms of abdominal pain,tenesmus and diarrhea. She does not have any evidence of obstruction, perforation or abscess. There is no proctitis on rigid proctoscopy done in the office. - We recommend ongoing medical management for the time being - We are happy to see her back if needed. Patient was discussed with attending surgeon Dr King who agrees with the above assessment and plan. Jorden Costa, PGY5 [phone] 1:26 PM Staff Attestation/Addendum: Ms. Klein has symptoms consistent with a possible flare, which have gotten better after course of Solumedrol and then pred taper. I could not identify any evidence of proctitis on proctoscopic examination, so unclear if she never had it or if it has just resolved with medical management. She seems to want a surgical "fix" for her issues, but I cannot identify anything regarding her CD that would benefit from surgical intervention. We discussed this at length. She was tearful about the situation, but seemed to accept that I couldn't offer her anything at this point. She is welcome to return if there are changes in her overall condition. I directly interviewed the patient, performed mauricio portions of the examination, personally reviewed pertinent ancillary data/imaging, and supervised the mauricio medical decision-making/plan of care. I agreewith the assessment, meds, and plan proposed by resident, unless mentioned above in this attending note. Alexis King MD 10/10/19 10:54 AM documented in this encounter Plan of Treatment [...] filedocumented in this encounter Visit Diagnoses Diagnosis Crohn's disease of both small and large intestine with other complication - Primary documented in this encounter
--- OUTSIDE RECORDS SUMMARY | 2019-11-18 13:41 | XMS REPORT | Continuity of Care Document ---
:1990 External Reference #:[id number] Author Name Curtis James MD Address [address] [place] [id number] Care Team Providers Name Role Phone Phong Monreal MD Care Team Information Avionics Test Technician [phone] Problems Active Problems Provider Date H/O: pulmonary [...] Qnty Indications Ordering Date Provider Oxycodone-Acetamino 1 po q 12 hrs prn 30tabs Curtis D. 10/24/2019 phen pain MD Erika 5-325mg Tablets Stelara inject [...] Unknown 2000Unit Capsules Proair HFA prn Phong Monreal 108(90Base) mcg/Act Aerosol Clobetasol prn Tyler Garibay [...] Result H/L Range Note Date Laboratory 10/23/2019 [facility] [place] SEE RESULT 1 test finding Pathology BELOW Order Laboratory 10/16/2019 [facility] CMV By PCR Undetected Undetected 2 test finding IU/mL CBC No Diff 09/02/2019 [facility] White Blood 5.9 10^3/uL Normal 3.5-10.8 Count [...] Volume 7.8 fL Normal 7.4-10.4 CMP(!) 09/02/2019 [facility] Sodium 137 mmol/L Normal 135-145 Potassium 4.2 [...] Egfr 149.8 >60 3 Laboratory test 09/02/2019 [facility] C Reactive Protein < 1.00 mg/L Normal < 8.01 finding CBC Auto Diff 06/23/2019 [facility] White Blood Count 7.1 10^3/uL Normal 3.5- [...] Cells % 0.0 Comp Metabolic Panel 06/23/2019 [facility] Sodium 137 mmol/L Normal 135-145 Potassium 3.8 [...] Egfr 171.2 >60 4 Laboratory test 06/23/2019 [facility] Erythrocyte Sed Rate 11 mm/Hr Normal 0-19 finding Comp Metabolic Panel 05/16/2019 [facility] Sodium 137 mmol/L Normal 135-145 Potassium 4.3 [...] Egfr 167.4 >60 5 Laboratory test 05/16/2019 [facility] C Reactive Protein 1.83 mg/L Normal <8.01 finding CBC Auto Diff 05/16/2019 [facility] White Blood Count 8.3 10^3/uL Normal 3.5- [...] [address]: Curtis James MD Acct: [id number] Unit: [id number] AGE: 29 Location: ENDO Re10/23/19 SEX: F Status: DEP REF SPEC: [id number] RUBY: 10/23/19- SUBM DR: Curtis James MD REQ: [id number] RECD: 10/23/19356 STATUS: TAMRA PLEITEZ DR: Phong Monreal MD [...] CONTINUED ON NEXT PAGE DEPARTMENT OF PATHOLOGY, [facility] [employer] [place] [address] Jorden Zapata M.D. Director BRAD # [id number] which are submitted entirely in one cassette. Signed by and Reported on: Tiera Beard MD 10/24/19 1713 END OF REPORT DEPARTMENT OF PATHOLOGY, [facility] [employer] [place] [address] Jorden Zapata M.D. Director BRAD # [id number] 2 Result in log IU/mL is Undetected. ADDITIONAL INFORMATION The quantification range of this assay is 35 to 10,000,000 IU/mL (1.54 log to 7.00 log IU/mL). Testing was performed using the seth CMV test ([employer] with the seth 6800 System. Test Performed by: [facility] [address] [place] [address] Tablet Repair: Scott Biswas M.D. Ph.D.; CLIA# [id number] 3 Because ethnic data is not always [...] Gastroenterology Curtis Bear K50.011 Crohn's disease 12:00[facility] Javan James MD of small intestine with rectal bleeding K62.5 Hemorrhage of anus and rectum Z86.711 Personal history of pulmonary embolism Office Visit 06/05/2019 Gastroenterology Curtis Bear K50.011 Crohn's 3:00p Associates Javan James MD disease of small intestine with rectal bleeding Office Visit 05/20/2019 Gastroenterology Curtis Bear K50.011 Crohn's 12:30p Associates Javan James MD disease of small intestine with [...] may need to consider reevaluation by colorectal [id number] Hemorrhage of anus and spnxlsP18.711 Personal history of pulmonary embolism Functional Status Description No Information Available Mental Status Description No Information Available Referrals Description No Information Available
--- OUTSIDE RECORDS SUMMARY | 2019-11-18 13:41 | XMS REPORT | Continuity of Care Document ---
:1990 External Reference #:[id number] Author Name Curtis James MD Address [address] [place] [id number] Care Team Providers Name Role Phone Phong Monreal MD Care Team Information Production Generalist [phone] Problems Active Problems Provider Date H/O: pulmonary embolus Curtis James MD Onset: 10/15/2019 Hemorrhage of rectum and anus Rosa Christopher PA-C Onset: 02/12/2019 Diarrhea Rosa Christopher PA-C Onset: 01/29/2019 Crohn's disease of small intestine Curtis James MD Onset: 09/11/2018 Gastroesophageal reflux disease Curtis James MD Onset: 01/25/2016 Epigastric pain Curtis Jamse MD Onset: 01/25/2016 Crohn's disease of small [...] take 2 po on day #1, 8tabs Crutis Henry. 10/14/2019 100mg then 1 po q [...] Date Facility Test Result H/L Range Note CBC No Diff 09/02/2019 [facility] White Blood Count 5.9 10^3/uL Normal 3.5-10.8 Red Blood Count 4.55 10^6/uL Normal 3.70-4.87 Hemoglobin 10.8 g/dL Low 12.0-16.0 Hematocrit 33 % Low 35-47 Mean Corpuscular Volume 72 fL Low 80-97 Mean Corpuscular Hemoglobin 24 pg Low 27-31 Mean Corpuscular HGB Conc 33 g/dL Normal 31-36 Red Cell Distribution Width 16 % High 10-15 Platelet Count 373 10^3/uL Normal 150-450 Mean Platelet Volume 7.8 fL Normal 7.4-10.4 CMP(!) 09/02/2019 [facility] Sodium 137 mmol/L Normal 135-145 Potassium 4.2 [...] Egfr Non- 123.8 >60 Egfr 149.8 >60 1 Laboratory test 09/02/2019 [facility] C Reactive Protein < 1.00 mg/L Normal < 8.01 finding CBC Auto Diff 06/23/2019 [facility] White Blood Count 7.1 10^3/uL Normal 3.5- [...] Cells % 0.0 Comp Metabolic Panel 06/23/2019 [facility] Sodium 137 mmol/L Normal 135-145 Potassium 3.8 [...] Egfr Non- 141.5 >60 Egfr 171.2 >60 2 Laboratory test 06/23/2019 [facility] Erythrocyte Sed Rate 11 mm/Hr Normal 0-19 finding Comp Metabolic Panel 05/16/2019 [facility] Sodium 137 mmol/L Normal 135-145 Potassium 4.3 [...] Egfr Non- 138.4 >60 Egfr 167.4 >60 3 Laboratory test 05/16/2019 [facility] C Reactive Protein 1.83 mg/L Normal <8.01 finding CBC Auto Diff 05/16/2019 [facility] White Blood Count 8.3 10^3/uL Normal 3.5- [...] Nucleated Red Blood Cells % 0.2 1 Because ethnic data is not always readily [...] 15-29 5 Kidney failure <15 (or dialysis) 2 Because ethnic data is not always [...] Date Location Provider Dx Diagnosis Office Visit 06/05/2019 Gastroenterology Curtis Bear K50.011 Crohn's disease 3:00p [facility] Javan James MD of small intestine with rectal bleeding Office Visit 05/20/2019 Gastroenterology Curtis Bear K50.011 Crohn's disease 12:30p Associates Javan James MD of small intestine with rectal bleeding Assessments [...] small intestine with rectal bleedingNew Labs:CMV Dna PCR QN Unspec Spec, Ordered: Comments:I had a very long and extensive conversation [...] may need to consider reevaluation by colorectal [id number] Hemorrhage of anus and ydzcyzV38.711 Personal history of pulmonary embolism Functional Status Description No Information Available Mental Status Description No Information Available Referrals Description No Information Available
[2019-11-18 14:33] LABS: ABS Basophils 0.1 10^3/ul (0-0.2); ABS Eosinophils 0.2 10^3/ul (0-0.6); ABS Monocytes 0.5 10^3/ul (0-0.8); ABS Neutrophils 4.9 10^3/ul (1.5-7.7); Hematocrit 27 % (35-47); Hemoglobin 8.4 g/dL (12.0-16.0); Lymphocyte % 26.3 %; Mean Corpuscular HGB Conc 31 g/dL (31-36); Mean Corpuscular Hemoglobin 22 pg (27-31); Mean Corpuscular Volume 69 fL (80-97); Mean Platelet Volume 7.6 fL (7.4-10.4); Platelet Count 392 10^3/uL (150-450); Red Blood Count 3.87 10^6 /uL (3.70-4.87); Red Cell Distribution Width 19 % (10-15); White Blood Count 7.7 10^3/uL (3.5-10.8)
[2019-11-18 14:40] LABS: ALT 15 U/L (7-52); AST 16 U/L (13-39); Albumin 4.2 g/dL (3.2-5.2); Albumin/Globulin Ratio 1.4 (1-3); Alkaline Phosphatase 66 U/L (34-104); Anion Gap 9 mmol/L (2-11); BUN/Creatinine Ratio 17.5 (8-20); Blood Urea Nitrogen 10 mg/dL (6-24); CO2 Carbon Dioxide 23 mmol/L (22-32); Calcium 9.8 mg/dL (8.6-10.3); Chloride 105 mmol/L (101-111); EGFR African American 152.8 (>60); EGFR Non-African American 126.3 (>60); Globulin 2.9 g/dL (2-4); Glucose 85 mg/dL (70-100); Potassium 3.6 mmol/L (3.5-5.0); Sodium 137 mmol/L (135-145); Total Protein 7.1 g/dL (6.4-8.9)
[2019-11-18 14:46] LABS: HCG Pregnancy < 0.60 mIU/mL
[2019-11-18] MEDS ORDERED: Iohexol 350* (CONTRAST) 500 ML MDV IV ONE (14:58)
[2019-11-18 16:17] VITALS: BP 108/68
== END 2019-11-18 16:14 | disposition home or self-care (01) ==
LOC: ED 13:16
DX: R07.9 Chest pain, unspecified (principal); D64.9 Anemia, unspecified; J45.909 Unspecified asthma, uncomplicated; K21.9 Gastro-esophageal reflux disease without esophagitis; F41.9 Anxiety disorder, unspecified; F32.9 Major depressive disorder, single episode, unspecified; Z87.891 Personal history of nicotine dependence; Z86.711 Personal history of pulmonary embolism; Z79.01 Long term (current) use of anticoagulants; Z79.899 Other long term (current) drug therapy
CPT/HCPCS: 36415; 71275; 80053; 83880; 84484; 84702; 85025; 93005; 96361; 96374; 99283; J2270; Q9967